=== PATIENT | female | born 1995 | race Caucasian/White ===

== ENCOUNTER 2023-07-29 14:10 | Inpatient (IN) | payer SELFPAY ==
[2023-07-29 14:11] VITALS: BP 131/99; PULSE 89; RESP 16; TEMP 36.7; O2SAT 98; BMI 19.3
[2023-07-29 14:26] LABS: Basophils % 0.5 %; Eosinophils # 0.1 10^3/uL (0.0-0.8); Eosinophils % 1.4 %; Lymphocytes # 1.9 10^3/uL (0.8-4.8); Lymphocytes % 44.2 %; Mean Corpuscular HGB Conc 33.8 g/dL (30-55); Mean Corpuscular Hemoglobin 30.6 pg (27-33); Mean Corpuscular Volume 90.7 fl (85-98); Monocytes # 0.4 10^3/uL (0.2-0.9); Monocytes % 9.7 %; Neutrophils # 1.92 10^3/uL (1.8-7.7); Neutrophils % 44.2 %; Nucleated Red Blood Cells % 0 %; Platelet Count 182 10^3/cmm (157-399); Red Blood Count 4.08 10^6/uL (3.85-5.65); Red Cell Distribution Width 13.4 % (12.1-15.1); White Blood Count 4.34 10^3/uL (3.29-11.43)
[2023-07-29 14:43] LABS: Alanine Aminotransferase 12 U/L (0-33); Albumin Level 4.1 g/dL (3.5-5.2); Alkaline Phosphatase 62 U/L (35-105); Aspartate Amino Transferase 20 U/L (0-32); Blood Urea Nitrogen 10 mg/dL (6-20); Calcium 9.7 mg/dL (8.5-10.5); Carbon Dioxide 26 mmol/L (22-29); Chloride 104 mmol/L (98-107); Globulin 2.8 g/dL (1.3-4.6); Glomerular Filtration Rate 101.1 mL/min (90-130); Glucose 84 mg/dL (65-115); Osmolality Calculated 288 mOsm/kg (285-295); Sodium 140 mmol/L (136-145); Total Bilirubin 0.3 mg/dL (0.15-1.2); Total Protein 6.9 g/dL (6.6-8.7)
[2023-07-29 14:44] LABS: Acetaminophen < 5.0 ug/mL (10-30); Alcohol Level < 10 mg/dL (0-10); Salicylate < 0.3 mg/dL (3-10)
[2023-07-29 14:45] LABS: Anion Gap 13.9 (5-19); Potassium 3.9 mmol/L (3.5-5.1)
[2023-07-29 15:00] LABS: Amphetamines Screen Urine Negative (Negative); Barbiturates Screen Urine Negative (Negative); Benzodiazepines Screen Urine Negative (Negative); Cocaine Screen Urine Negative (Negative); Opiate Screen Urine Negative (Negative); PCP Screen Urine Negative (Negative); THC Screen Urine Positive (Negative)
--- NOTE | 2023-07-29 15:02 | W.ED.PSYCHS ---
HPI - Psych General: Chief Complaint: Psychiatric Symptoms Stated Complaint: Hallucinations Time Seen by Provider: 07/29/23 14:12 Source: patient and EMS Mode of arrival: EMS Limitations: no limitations History of Present Illness: Patient presents here with severe paranoia she states that she believes that the government's been out to get her she states she has any disability that she has to work at times. She states she also believes that she is a sleeper soldier that was sent here to protect some people patient is quite delusional and paranoid no known history of this in the past Associated symptoms: Reports delusions Review of Systems Const: Denies: fever(s) or chills ENMT: Denies: throat pain or dental pain Card: Denies: chest pain Resp: Denies: dyspnea GI: Denies: abdominal pain, nausea, vomiting or diarrhea Musc: Denies: neck pain or back pain Skin/Breast: Denies: rash Neuro: Denies: headache(s) Psych: Reports: paranoia Physical Exam Const: COMMON NORMALS: patient oriented x3 HENMT: COMMON NORMALS: normocephalic and atraumatic HEAD & SCALP: normocephalic and atraumatic Neck/C-Spine: COMMON NORMALS: full ROM and supple Chest: COMMONS NORMALS: normal inspection of the chest Resp: COMMON NORMALS: normal respiratory effort Cardio: COMMON NORMALS: regular rate, regular rhythm and No murmurs present (Cardio) RATE: regular rate RHYTHM: regular rhythm Extremity: COMMON NORMALS: normal to inspection and full ROM Neuro: COMMON NORMALS: patient oriented x3, moves all extremities and no focal motor deficits Psych: COMMON NORMALS: mental status grossly normal, Normal thought process present and cooperative THOUGHT PROCESS: Normal thought process present THOUGHT CONTENT: Yes delusions and Yes Hallucination(s) present Skin: COMMON NORMALS: no rashes or lesions noted and no wounds GENERAL SKIN EXAM: no rashes or lesions noted Course Vital Signs: Vital signs: Vital Signs Temperature 98.0 F 07/29/23 14:11 Pulse Rate 89 07/29/23 14:11 Respiratory Rate 16 07/29/23 14:11 Blood Pressure 131/99 07/29/23 14:11 Pulse Oximetry 98 07/29/23 14:11 Oxygen Delivery Me thod Room Air 07/29/23 14:11 MDM - Psych Medical Decision Making Patient presents here with acute psychosis she is medically cleared placed under 96-hour hold I spoke to psychiatrist will admit at this time. Medical Records I reviewed the patient's medical records. Lab Data I reviewed the patient's lab results. 07/29/23 14:19 07/29/23 14:19 Laboratory Results WBC 4.34 10^3/uL (3.29-11.43) 07/29/23 14:19 RBC 4.08 10^6/uL (3.85-5.65) 07/29/23 14:19 Hgb 12.50 g/dL (11.27-16.99) 07/29/23 14:19 Hct 37.0 % (36-47) 07/29/23 14:19 MCV 90.7 fl (85-98) 07/29/23 14:19 MCH 30.6 pg (27-33) 07/29/23 14:19 MCHC 33.8 g/dL (30-55) 07/29/23 14:19 RDW 13.4 % (12.1-15.1) 07/29/23 14:19 Plt Count 182 10^3/cmm (157-399) 07/29/23 14:19 MPV 11.0 fL (7.4-10.4) H 07/29/23 14:19 Neut % (Auto) 44.2 % 07/29/23 14:19 Lymph % (Auto) 44.2 % 07/29/23 14:19 [place] % (Auto) 9.7 % 07/29/23 14:19 Eos % (Auto) 1.4 % 07/29/23 14:19 Baso % (Auto) 0.5 % 07/29/23 14:19 Neut # (Auto) 1.92 10^3/uL (1.8-7.7) 07/29/23 14:19 Lymph # (Auto) 1.9 10^3/uL (0.8-4.8) 07/29/23 14:19 [place] # (Auto) 0.4 10^3/uL (0.2-0.9) 07/29/23 14:19 Eos # (Auto) 0.1 10^3/uL (0.0-0.8) 07/29/23 14:19 Baso # (Auto) 0.0 10^3/uL (0.0-0.1) 07/29/23 14:19 Nucleated RBC % (auto) 0 % 07/29/23 14:19 Nucleated RBCs # 0.0 /100WBC 07/29/23 14:19 Sodium 140 mmol/L (136-145) 07/29/23 14:19 Potassium 3.9 mmol/L (3.5-5.1) 07/29/23 14:19 Chloride 104 mmol/L (98-107) 07/29/23 14:19 Carbon Dioxide 26 mmol/L (22-29) 07/29/23 14:19 Anion Gap 13.9 (5-19) 07/29/23 14:19 BUN 10 mg/dL (6-20) 07/29/23 14:19 Creatinine 0.7 mg/dL (0.5-0.9) 07/29/23 14:19 GFR Calculation 101.1 mL/min (90-130) 07/29/23 14:19 Glucose 84 mg/dL (65-115) 07/29/23 14:19 Calculated Osmolality 288 mOsm/kg (285-295) 07/29/23 14:19 Calcium 9.7 mg/dL (8.5-10.5) 07/29/23 14:19 Total Bilirubin 0.3 mg/dL (0.15-1.2) 07/29/23 14:19 AST 20 U/L (0-32) 07/29/23 14:19 ALT 12 U/L (0-33) 07/29/23 14:19 Alkaline Phosphatase 62 U/L (35-105) 07/29/23 14:19 Total Protein 6.9 g/dL (6.6-8.7) 07/29/23 14:19 Albumin 4.1 g/dL (3.5-5.2) 07/29/23 14:19 Globulin 2.8 g/dL (1.3-4.6) 07/29/23 14:19 Salicylates < 0.3 mg/dL (3-10) L 07/29/23 14:19 Urine Opiates Screen Negative ng/mL (Negative) 07/29/23 14:33 Acetaminophen < 5.0 ug/mL (10-30) L 07/29/23 14:19 Ur Barbiturates Screen Negative ng/mL (Negative) 07/29/23 14:33 Ur Phencyclidine Scrn Negative ng/mL (Negative) 07/29/23 14:33 Ur Amphetamines Screen Negative ng/mL (Negative) 07/29/23 14:33 U Benzodiazepines Scrn Negative ng/mL (Negative) 07/29/23 14:33 Urine Cocaine Screen Negative ng/mL (Negative) 07/29/23 14:33 U Marijuana (THC) Screen Positive ng/mL (Negative) H 07/29/23 14:33 Ethyl Alcohol < 10 mg/dL (0-10) 07/29/23 14:19 No radiology studies performed this visit Discharge Plan Discharge Patient Disposition: Admitted As Inpatient Clinical Impression: Acute psychosis Condition: Stable Prescriptions: No Action No Known Home Medications Coding Level of Care Code ED Animal Park Code Enforcement Officer for Charlene Molina
[2023-07-29 16:50] LABS: HCG Qualitative Urine. Negative (Negative)
[2023-07-29 17:28] VITALS: BP 125/89; PULSE 81; RESP 18; TEMP 36.6; O2SAT 100
[2023-07-29] MEDS: nicotine 2 mg Gum BUCCAL (18:12)
--- NOTE | 2023-07-29 18:44 | PC.NURSE ---
Pt admitted to [facility] at 1719.Pt was brought in by law enforcement due to making bizarre statements. Upon admission pt states that she is here because her family wanted her to be here but she isn?t too sure. She told police ?I have a cloak of invisibility around my daughter so bad people cant take her.? Pt was positive for marijuana. Pt denies SI/HI. She said she thinks that she hears and sees thing that aren?t there but she knows they aren?t real. During admission assessment pt was asked if she had any medical history she stated i have a kidney infection and if i don't have one someone else definitely does. When asked if pt had an advanced directive she asked what that was, staff told her if she doesn't know what it is then she probably doesn't have one, pt then stated oh then i definitely have one its Don Delvalle. She proceeded to say that about a living will, a guardian and a medical power of claim attorney. pt appears to be a poor historian but is very calm and cooperative during assessment.
[2023-07-29 20:18] VITALS: BP 134/88; PULSE 95; RESP 16; TEMP 36.7; O2SAT 99
[2023-07-29] MEDS: OLANZapine 5 mg ODT PO (20:39)
[2023-07-29] MEDS: trazodone 50 mg Tablet PO (21:27)
[2023-07-30 06:00] VITALS: BP 101/65; PULSE 66; RESP 16; O2SAT 99
[2023-07-30] MEDS: nicotine 4 mg lozenge MUCOUS MEM ×2 (10:13→20:47)
--- NOTE | 2023-07-30 12:45 | P.CONIM_ITS ---
Providers/Reason For Consult 2 Consulting Physician/Specialty*: Internal medicine/dr. rice Reason for Consult*: Possible mastitis Attending Physician: Michel Maldonado MD History of Present Illness History of Present Illness Sugar Mathews is a 28 year old female Without significant past medical history presented to the hospital for paranoia and is currently admitted to the psychiatric unit. She is currently being treated for delusions and paranoia by psychiatry however it was noted that patient has possible mastitis and therefore hospitalist team was consulted. Patient is currently breast-feeding. Her daughter is 1 years old. Patient also states that she apparently potentially has a glass on the bottom of her both feet. She says she fell there was something on the bottom of her feet that she has been trying to take out but she cannot. She states that she is unable to put weight on the foot on a specific spot on her left foot and it is slightly tender. Medications/Allergies Home Medications Medication Instructions Recorded Confirmed Last Taken Type No Known Home Medications 07/29/23 07/29/23 Unknown History Allergies Allergy/AdvReac Type Severity Reaction Status Date / Time amoxicillin Allergy Unknown Verified 07/29/23 14:21 azithromycin [From Zithromax] Allergy Unconscious Verified 07/29/23 14:21 sulfamethoxazole Allergy Unconscious Verified 07/29/23 14:21 [From Bactrim] trimethoprim [From Bactrim] Allergy Unconscious Verified 07/29/23 14:21 Current Medications Generic Name Dose Route Start Last Admin Trade Name Freq PRN Reason Stop Dose Admin Nicotine Polacrilex 2 mg 07/29/23 17:28 07/29/23 18:12 Nicotine 2 Mg Gum BUCCAL 2 mg Q2H PRN Administration NICOTINE WITHDRAWAL Nicotine Polacrilex 4 mg 07/29/23 19:52 07/30/23 10:13 Nicotine 4 Mg Lozenge MUCOUS MEM 4 mg Q2H PRN Administration NICOTINE CRAVINGS Olanzapine 5 mg 07/29/23 17:28 07/29/23 20:39 Olanzapine 5 Mg Odt PO 5 mg Q4H PRN Administration Agitation/Psychosis Trazodone HCl 50 mg 07/29/23 17:28 07/29/23 21:27 Trazodone 50 Mg Tablet PO 50 mg BEDTIME PRN Administration SLEEP Vitals/I&O/Wt Last Vital Signs Temp 98.0 F 07/29/23 20:18 Pulse 66 07/30/23 06:00 Resp 16 07/30/23 06:00 BP 101/65 07/30/23 06:00 Pulse Ox 99 07/30/23 06:00 O2 Del Method Room Air 07/30/23 06:00 Weight last 48 hrs Weight 51.256 kg Physical Exam 2 Narrative: No acute distress Lungs clear to auscultation Abdomen soft Right breast nontender nonswollen no erythema noted. Small nodule noted at superior aspect medial side may be 1 cm in size. Nontender. Seems to be an inflamed duct. This does not appear to be mastitis. Both breasts are very engorged since patient has not breast-fed in last 24 hours. Both breasts are nontender to palpation. Bilateral feet do not have any visible foreign bodies Data 07/29/23 14:19 07/29/23 14:19 A&P Assessment and plan (1) Engorged breasts: Plan #Engorged breasts #Possible foreign body in feet ? I do not believe patient has mastitis at this time. I would recommend getting a breast pump for the patient and letting her pump several times a day to relieve pressure. If after pumping she gets erythema or any signs of mastitis I would pursue with further imaging and potentially start antibiotics however at this time I recommend she pump as much as she can. ? Will consult podiatry to examine feet and recommend further imaging studies. Psych management as per psych Consult Attestations 2 Medical Necessity Statement: Defer to primary team. Diagnoses Engorged breasts N64.59
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
[2023-07-30 14:00] VITALS: BP 99/62; PULSE 65; RESP 16; TEMP 36.4; O2SAT 96
--- NOTE | 2023-07-30 14:02 | XRR_ITS ---
PROCEDURE INFORMATION: Exam: XR Left Foot Exam date and time: 07/30/2023 2:58 PM Age: 28 years old Clinical indication: Injury or trauma; Other: Stepped on glass; Laceration; Foot; Bilateral; Foreign body involvement not specified TECHNIQUE: Imaging protocol: Radiologic exam of the left foot. Views: 3 or more views. COMPARISON: No relevant prior studies available. FINDINGS: Bones/joints: No evidence of acute fracture or subluxation. Tarsometatarsal alignment is maintained. Soft tissues: No gross soft tissue abnormality. XR/XR foot LT min 3V* [id number] IMPRESSION: 1. No evidence of radiopaque foreign body, acute fracture or subluxation. If there is ongoing clinical concern, consider correlation with CT.
--- NOTE | 2023-07-30 14:02 | XRR_ITS ---
PROCEDURE INFORMATION: Exam: XR Right Foot Exam date and time: 07/30/2023 3:01 PM Age: 28 years old Clinical indication: Injury or trauma; Other: Stepped on glass; Laceration; Foot; Bilateral; Foreign body involvement not specified TECHNIQUE: Imaging protocol: Radiologic exam of the right foot. Views: 3 or more views. COMPARISON: No relevant prior studies available. FINDINGS: Bones/joints: No evidence of acute fracture or subluxation. Tarsometatarsal alignment is maintained. Soft tissues: No gross soft tissue abnormality. XR/XR foot RT min 3V* [id number] IMPRESSION: 1. No evidence of radiopaque foreign body, acute fracture or subluxation. If there is ongoing clinical concern, consider correlation with CT.
--- NOTE | 2023-07-30 14:49 | PC.OT ---
OT EVALUATION ATTEMPTED AM AND PM AND PT WAS NOT AWAKE; WILL ATTEMPT AGAIN TOMORROW
--- NOTE | 2023-07-30 15:27 | PC.NURSE ---
This nurse assisted the pt with using breast pump around 1400 today. Pt pumped from both breast and was encouraged to pump as often as pt breast feed at home to help with keeping supply up and not getting engorged or mastitis. Pt stated that she wants to continue when she gets home.
--- NOTE | 2023-07-30 18:26 | P.CONIM_ITS ---
Providers/Reason For Consult 2 Consulting Physician/Specialty*: Dr. Farooq Wright, Rk.P.M./podiatry Reason for Consult*: Foreign body bilateral feet Attending Physician: Michel Maldonado MD History of Present Illness History of Present Illness Sugar Mathews is a 28 year old female with unremarkable past medical history who presented to the emergency department yesterday 07/29/2023 with paranoia. Based on her presentation, she was admitted to the Neuropsych Unit. Patient is currently breast-feeding and was found to have possible mastitis. During her workup she made mention of potential glass in the bottom of both of her feet. Podiatry was consulted to evaluate patient and provide further recommendations for treatment. In discussing with the patient, she states that she feels that there was something in the bottom of her feet over the course the past week. She states that she was going to digs them out herself but just in the past couple of days her feet stopped hurting and she thinks that the glass has worked its way out. She does indicate a spot on the plantar aspect of the left foot that she states is still slightly tender. But much improved to what it was. She states that she is able to walk without any pain. This was witnessed by me as she was walking around with normal gait. Patient denies any constitutional symptoms. Review of Systems 2 General: Reports: 10 or more systems reviewed and unremarkable except in HPI and below Const: Denies: fever(s), chills, body aches or change in appetite Eyes: Denies: change in vision or blurry vision Card: Denies: chest pain, palpitations or irregular heart rhythm Resp: Denies: dyspnea GI: Denies: abdominal pain, nausea, vomiting or diarrhea Skin/Breast: Reports: lesions Medications/Allergies Home Medications Medication Instructions Recorded Confirmed Last Taken Type No Known Home Medications 07/29/23 07/29/23 Unknown History Allergies Allergy/AdvReac Type Severity Reaction Status Date / Time amoxicillin Allergy Unknown Verified 07/29/23 14:21 azithromycin [From Zithromax] Allergy Unconscious Verified 07/29/23 14:21 sulfamethoxazole Allergy Unconscious Verified 07/29/23 14:21 [From Bactrim] trimethoprim [From Bactrim] Allergy Unconscious Verified 07/29/23 14:21 Current Medications Generic Name Dose Route Start Last Admin Trade Name Freq PRN Reason Stop Dose Admin Nicotine Polacrilex 2 mg 07/29/23 17:28 07/29/23 18:12 Nicotine 2 Mg Gum BUCCAL 2 mg Q2H PRN Administration NICOTINE WITHDRAWAL Nicotine Polacrilex 4 mg 07/29/23 19:52 07/30/23 10:13 Nicotine 4 Mg Lozenge MUCOUS MEM 4 mg Q2H PRN Administration NICOTINE CRAVINGS Olanzapine 5 mg 07/29/23 17:28 07/29/23 20:39 Olanzapine 5 Mg Odt PO 5 mg Q4H PRN Administration Agitation/Psychosis Trazodone HCl 50 mg 07/29/23 17:28 07/29/23 21:27 Trazodone 50 Mg Tablet PO 50 mg BEDTIME PRN Administration SLEEP Vitals/I&O/Wt Last Vital Signs Temp 97.6 F 07/30/23 14:00 Pulse 65 07/30/23 14:00 Resp 16 07/30/23 14:00 BP 99/62 07/30/23 14:00 Pulse Ox 96 07/30/23 14:00 O2 Del Method Room Air 07/30/23 06:00 Weight last 48 hrs Weight 113 lb Physical Exam 2 Narrative: BELOW IS A FOCUSED LOWER EXTREMITY EXAM GENERAL: A&O x 3 VASCULAR: DP/PT pulses palpable 2/4 with CFT intact, <3seconds to distal digits DERMATOLOGICAL: Skin turgor and temperature is within normal limits. No interdigital maceration noted. Hyperkeratotic tissue buildup plantar aspect of hallux interphalangeal joint bilaterally. No open wounds or lesions. No pain with palpation of hallux interphalangeal joint fat pad plantarly where patient indicated location of glass could potentially be. Medial longitudinal arch left foot shows small superficial healing wound. Palpation of this did elicit minimal tenderness. No erythema, no proximal streaking. No evidence of deep space abscess. No underlying fluctuance. No other wounds or lesions noted. Feet are soiled likely barefoot walking MUSCULOSKELETAL: As with palpation of aforementioned skin lesion medial longitudinal arch left foot NEUROLOGICAL: Neurological sensation to the affected foot and ankle is present through L4-S1 dermatomes with no hyper/hypoesthesias, negative Tinel or Valleix's sign IMAGING: Three-view x-rays bilateral feet taken today were personally interpreted by me which show no evidence of foreign body. However, if pain persists or infection ensues further imaging in the form of an MRI would be more beneficial. Data 07/29/23 14:19 07/29/23 14:19 A&P Assessment and plan (1) Foreign body in left foot: (2) Acute psychosis: Plan -Possible foreign body bilateral feet -Labs and vitals reviewed -WBC 4.34 -VSS -Diet: Okay for diet -No surgical intervention during admission -Based on clinical evaluation as well as radiographic evaluation, patient does not have readily visible or accessible foreign body of either the right or the left foot. Lesion on plantar aspect of left foot in the medial longitudinal arch area may be indicative of superficial foreign body versus healing wound patient picking at the bottoms of her feet. I discussed with the patient that if there is a superficial foreign body that these typically will work their way out to the surface of the skin. If this happens and a small blister or pustule develops, the patient is not to pop it or pick it themselves. They are to contact the clinic. I also advised the patient on avoiding barefoot walking. I recommended to the patient that she follow-up with me in clinic in the outpatient setting after discharge from the hospital. If she has persistent pain and is still concerned about foreign body this is something that can be evaluated and treated in the office. Based on patient's condition and location I did not feel it appropriate to perform exploratory debridement to the plantar aspect of the left foot. As there is no infection, this can be evaluated in the outpatient setting. -Weight bearing: Weightbearing as tolerated to bilateral feet without restriction -Dressings: No dressings needed -Discharge plan: Patient is okay to discharge home from podiatry standpoint once deemed medically stable by the primary team. Recommend follow-up in the outpatient setting upon discharge for evaluation of bilateral feet. -Podiatry will sign off. Please reconsult if needed. Coding Level of Care Code Acute Code for Chg Fwd Diagnoses Foreign body in left foot S90.852A Acute psychosis F23
--- NOTE | 2023-07-30 20:55 | PC.NURSE ---
IN BED RESTING AROUSES TO VOICE. DENIES PAIN. DENIES SI/HI AND AVH AT THIS TIME. RATES ANXIETY 0/10 AND DEPRESSION 6/10. PT IS NOTED TO HAVE A FLAT AFFECT AND WITHDRAWN TO ROOM. PT WENT TO SPEAK TO DR. COPE IN DAY ROOM. ALL QUESTIONS ANSWERED AND SUPPORT WAS VOICED.
[2023-07-30 22:00] VITALS: BP 127/87; PULSE 103; RESP 16; TEMP 36.9; O2SAT 95
[2023-07-31 06:00] VITALS: BP 106/65; PULSE 64; RESP 16; O2SAT 100
[2023-07-31] MEDS: nicotine 2 mg Gum BUCCAL ×2 (08:22→10:39)
--- NOTE | 2023-07-31 09:04 | PC.NURSE ---
THIS NURSE ASKED PATIENT IF SHE WANTED TO PUMP. PATIENT STATED THAT SHE NEEDED NEED TO AT THE MOMENT. PATIENT ALSO SAID THAT SHE DOESN'T LIKE TO PUMP, BUT THAT SHE WOULD PROBABLY ASK TO PUMP LATER IN THE DAY. THIS NURSE ENCOURAGED PATIENT TO NOTIFY US AND THAT WE WOULD BE HAPPY TO GATHER SUPPLIES. UNDERSTANDING VERBALIZED.
[2023-07-31] MEDS: nicotine 4 mg lozenge MUCOUS MEM ×3 (12:43→19:35)
[2023-07-31 13:47] VITALS: BP 143/86; PULSE 82; RESP 15; TEMP 36.8; O2SAT 100
--- NOTE | 2023-07-31 14:01 | P.PN_ITS ---
Subjective 2 Subjective: Briefly seen today. Patient states that she feels a lot better and breast are not engorged anymore and she has no pain. She felt better after pumping. She has no other complaints at this time. Vitals/I&O/Wt Last Vital Signs Temp 98.2 F 07/31/23 13:47 Pulse 82 07/31/23 13:47 Resp 15 07/31/23 13:47 BP 143/86 07/31/23 13:47 Pulse Ox 100 07/31/23 13:47 O2 Del Method Room Air 07/31/23 06:00 Weight last 48 hrs Weight 51.256 kg Physical Exam 2 Narrative: Not examined. Patient states she feels better. Data 07/29/23 14:19 07/29/23 14:19 A&P Assessment and plan (1) Engorged breasts: Plan Patient states she feels better after pumping. Podiatry also saw patient and recommended follow-up in clinic as an outpatient. Medicine will sign off at this time. Please recall should you have further questions. Attestations 2 Medical Necessity Statement*: Defer to primary team Diagnoses Engorged breasts N64.59
--- NOTE | 2023-07-31 17:13 | P.NPUPN_ITS ---
Subjective NPU 2 Subjective: Patient presented today reporting that she really wants to be home for her daughter's first birthday tomorrow. She reports that she is doing okay and at first was somewhat resistant to medication conversation. She talked about thinking maybe she has ADHD that she needs to be checked for that. We discussed that her symptoms are consistent with thought disorder and we discussed the risks, benefits and alternatives of starting Abilify and she understood and agreed to proceed as is documented in this note. Mental Status Exam 2 MSE Comments: This is an underweight white female in hospital scrubs with adequate grooming and eye contact. No abnormal movements except for mild psychomotor retardation. Cooperative with exam in mild distress. Speech was decreased rate and volume. Mood described as anxious and depressed, affect odd. Thought process mostly organized. Thought content: Patient endorsed anxiety, insomnia, depression, feeling of purposelessness, occasional thoughts of non-existence, occasional thoughts of communication with aliens, occasional thoughts of telepathy, no current thoughts of self-harm or harm to others. She denied active suicidal or homicidal ideation, there were no delusions reported but clear odd and bizarre delusions of reference noted, she denied auditory hallucinations to some degree but another time seem to report things it seems like auditory hallucinations but denied visual hallucinations. Attention and concentration was mostly intact and memory was mostly reliable but none were formally tested. She is alert and oriented times person and place. Insight, judgment and impulse control are impaired. Vitals/I&O/Wt Last Vital Signs Temp 98.4 F 07/31/23 20:45 Pulse 86 07/31/23 20:45 Resp 16 07/31/23 20:45 BP 140/79 07/31/23 20:45 Pulse Ox 99 07/31/23 20:45 O2 Del Method Room Air 07/31/23 20:45 Data NPU 07/29/23 14:19 07/29/23 14:19 A&P Assessment and plan (1) Acute psychosis: (2) Foreign body in left foot: (3) Breast feeding status of mother: (4) Cannabis use disorder: Plan This is a 28-year-old white female who presents with symptoms of anxiety, insomnia, and depression. She also reports unusual beliefs and experiences such as feeling that aliens are communicating with her and that she can hear people's thoughts. She has a history of trying Zoloft for her symptoms but is resistant to medication and prefers a more holistic approach to her mental health. Possible thought disorder noted, further evaluation needed. Agreed to exploring antipsychotic with special attention to breast-feeding concerns. 1. Evaluate for appropriate antipsychotic given breast-feeding considerations. Start Abilify 5 mg p.o. daily 2. Continue every 15 minute checks for safety. 3. Encourage individual, group and milieu therapy. 4. Encourage sober living treatment after discharge at the highest level care to which she is willing to commit. 5. Obtain hospitalist consult for possible mastitis and foreign body in foot. 6. Evaluate for safety for 96-hour hold. Get collateral information from family/significant others. Involuntary Hold Information 2 96 Hour Hold: 96 Hour Involuntary Admission: Yes 96 Hour Hold Ending Date: 08/04/23 96 Hour Hold Ending Time: 14:35 Attestations NPU 2 Medical Necessity Statement*: Inpatient hospitalization is medically necessary and the clinically appropriate intervention at this time. We will monitor/initiate medications and make changes as indicated. Likely length of stay 3-5days. Coding Level of Care Code Acute Code for Chg Fwd Diagnoses Acute psychosis F23 Foreign body in left foot S90.852A Breast feeding status of mother Z39.1 Cannabis use disorder F12.90
[2023-07-31] MEDS: ARIPiprazole 10 mg Tablet 5 MG PO (20:13)
[2023-07-31 20:45] VITALS: BP 140/79; PULSE 86; RESP 16; TEMP 36.9; O2SAT 99
[2023-08-01] MEDS: acetaminophen 325 mg Tablet 650 MG PO (03:57)
[2023-08-01 06:00] VITALS: BP 116/76; PULSE 72; RESP 16; O2SAT 97
[2023-08-01] MEDS: ARIPiprazole 10 mg Tablet 5 MG PO (08:28)
[2023-08-01] MEDS: nicotine 4 mg lozenge MUCOUS MEM ×2 (08:34→09:01)
--- NOTE | 2023-08-01 09:01 | PC.NURSE ---
Patient given nicotine lozenge early due to her accidentally leaving her previous lozenge on her breakfast tray.
[2023-08-01] MEDS: neomycin-poly-bacitracin oint 28 gm 1 APPLIC TOPICAL (09:16)
[2023-08-01] MEDS: nicotine 2 mg Gum BUCCAL ×3 (13:08→21:40)
[2023-08-01] MEDS: calcium carbonate 500 mg Chew Tablet 1000 MG PO (13:38)
[2023-08-01 14:00] VITALS: BP 107/75; PULSE 96; RESP 18; TEMP 36.8; O2SAT 98
--- NOTE | 2023-08-01 15:00 | P.NPUPN_ITS ---
Subjective NPU 2 Subjective: Patient presented today reporting that she is feeling better and does feel the Abilify has helped. She had been concerned that it was going to feel like she was medicated and she reported that she has not felt that way. We discussed that we started on the low-dose and wanted to make sure she was tolerating it and not feeling that way before we increased her medication. We discussed the risks, benefits and alternatives of increasing the dose to 10 mg p.o. daily and she understood and agreed to proceed as is documented in this note. She continues to endorse limited insight into the behaviors and thinking that led to her going on to a neighbor's porch. We discussed the possibility of her daughter being brought down so that she could see her through the window or doing a Zoom call but she opted to wait until she is discharged to see her. Mental Status Exam 2 MSE Comments: This is an underweight white female in hospital scrubs with adequate grooming and eye contact. No abnormal movements except for mild psychomotor retardation. Cooperative with exam in mild distress. Speech was decreased rate and volume. Mood described as anxious and depressed, affect odd. Thought process mostly organized. Thought content: Patient endorsed anxiety, insomnia, depression, feeling of purposelessness, occasional thoughts of non-existence, occasional thoughts of communication with aliens, occasional thoughts of telepathy, no current thoughts of self-harm or harm to others. She denied active suicidal or homicidal ideation, there were no delusions reported but clear odd and bizarre delusions of reference noted, she denied auditory hallucinations to some degree but another time seem to report things it seems like auditory hallucinations but denied visual hallucinations. Attention and concentration was mostly intact and memory was mostly reliable but none were formally tested. She is alert and oriented times person and place. Insight, judgment and impulse control are impaired. Vitals/I&O/Wt Last Vital Signs Temp 98.4 F 07/31/23 20:45 Pulse 72 08/01/23 06:00 Resp 16 08/01/23 06:00 BP 116/76 08/01/23 06:00 Pulse Ox 97 08/01/23 06:00 O2 Del Method Room Air 07/31/23 06:00 Data NPU 07/29/23 14:19 07/29/23 14:19 A&P Assessment and plan (1) Acute psychosis: (2) Foreign body in left foot: (3) Breast feeding status of mother: (4) Cannabis use disorder: Plan This is a 28-year-old white female who presents with symptoms of anxiety, insomnia, and depression. She also reports unusual beliefs and experiences such as feeling that aliens are communicating with her and that she can hear people's thoughts. She has a history of trying Zoloft for her symptoms but is resistant to medication and prefers a more holistic approach to her mental health. Possible thought disorder noted, further evaluation needed. Agreed to exploring antipsychotic with special attention to breast-feeding concerns. 1. Evaluate for appropriate antipsychotic given breast-feeding considerations. Increase Abilify from 5 to 10 mg p.o. daily. 2. Continue every 15 minute checks for safety. 3. Encourage individual, group and milieu therapy. 4. Encourage sober living treatment after discharge at the highest level care to which she is willing to commit. 5. Obtain hospitalist consult for possible mastitis and foreign body in foot. 6. Evaluate for safety for 96-hour hold. Get collateral information from family/significant others. Filed for 21-day hold. Involuntary Hold Information 2 96 Hour Hold: 96 Hour Involuntary Admission: Yes 96 Hour Hold Ending Date: 08/04/23 96 Hour Hold Ending Time: 14:35 Attestations NPU 2 Medical Necessity Statement*: Inpatient hospitalization is medically necessary and the clinically appropriate intervention at this time. We will monitor/initiate medications and make changes as indicated. Likely length of stay 3-5days. Coding Level of Care Code Acute Code for Chg Fwd Diagnoses Acute psychosis F23 Foreign body in left foot S90.852A Breast feeding status of mother Z39.1 Cannabis use disorder F12.90
[2023-08-01 20:44] VITALS: BP 145/95; PULSE 92; RESP 18; TEMP 36.9; O2SAT 99
[2023-08-02 06:00] VITALS: BP 118/85; PULSE 97; RESP 18; TEMP 36.6; O2SAT 97
[2023-08-02] MEDS: nicotine 2 mg Gum BUCCAL ×4 (08:36→18:23)
[2023-08-02] MEDS: ARIPiprazole 10 mg Tablet PO (08:36)
--- NOTE | 2023-08-02 09:09 | P.NPUPN_ITS ---
Subjective NPU 2 Subjective: Patient presented today reporting that she is doing okay. We discussed the fact that I spoke with her father and him reporting bizarre and delusional talk when she visited him around the holidays up until June 30 of this year. We discussed having submitted a 21-day hold request and the way that process goes. We reviewed the concerns we have about her safety and we both agreed that her thought process is improving and some very subtle ways. She reported that she is tolerating the increase in the Abilify and denies any side effects of the medication. Mental Status Exam 2 MSE Comments: This is an underweight white female in hospital scrubs with adequate grooming and eye contact. No abnormal movements except for mild psychomotor retardation. Cooperative with exam in mild distress. Speech was decreased rate and volume. Mood described as a little better, affect less odd. Thought process mostly organized. Thought content: Patient endorsed anxiety, insomnia, depression, feeling of purposelessness, occasional thoughts of non-existence, occasional thoughts of communication with aliens, occasional thoughts of telepathy, no current thoughts of self-harm or harm to others. She denied active suicidal or homicidal ideation, there were no delusions reported but clear odd and bizarre delusions of reference noted, she denied auditory hallucinations to some degree but another time seem to report things it seems like auditory hallucinations but denied visual hallucinations. Attention and concentration was mostly intact and memory was mostly reliable but none were formally tested. She is alert and oriented times person and place. Insight, judgment and impulse control are improving. Vitals/I&O/Wt Last Vital Signs Temp 97.8 F 08/02/23 06:00 Pulse 97 08/02/23 06:00 Resp 18 08/02/23 06:00 BP 118/85 08/02/23 06:00 Pulse Ox 97 08/02/23 06:00 O2 Del Method Room Air 08/02/23 06:00 Data NPU 07/29/23 14:19 07/29/23 14:19 A&P Assessment and plan (1) Acute psychosis: (2) Foreign body in left foot: (3) Breast feeding status of mother: (4) Cannabis use disorder: Plan This is a 28-year-old white female who presents with symptoms of anxiety, insomnia, and depression. She also reports unusual beliefs and experiences such as feeling that aliens are communicating with her and that she can hear people's thoughts. She has a history of trying Zoloft for her symptoms but is resistant to medication and prefers a more holistic approach to her mental health. Possible thought disorder noted, further evaluation needed. Agreed to exploring antipsychotic with special attention to breast-feeding concerns. 1. Evaluate for appropriate antipsychotic given breast-feeding considerations. Increased Abilify from 5 to 10 mg p.o. daily. 2. Continue every 15 minute checks for safety. 3. Encourage individual, group and milieu therapy. 4. Encourage sober living treatment after discharge at the highest level care to which she is willing to commit. 5. Obtain hospitalist consult for possible mastitis and foreign body in foot. 6. Evaluate for safety for 96-hour hold. Get collateral information from family/significant others. Filed for 21-day hold. Involuntary Hold Information 2 96 Hour Hold: 96 Hour Involuntary Admission: Yes 96 Hour Hold Ending Date: 08/04/23 96 Hour Hold Ending Time: 14:35 Attestations NPU 2 Medical Necessity Statement*: Inpatient hospitalization is medically necessary and the clinically appropriate intervention at this time. We will monitor/initiate medications and make changes as indicated. Likely length of stay 3-5days. Coding Level of Care Code Acute Code for Chg Fwd Diagnoses Acute psychosis F23 Foreign body in left foot S90.852A Breast feeding status of mother Z39.1 Cannabis use disorder F12.90
[2023-08-02 14:00] VITALS: BP 110/74; PULSE 75; RESP 16; TEMP 37.1; O2SAT 98
[2023-08-02] MEDS: hyDROXYzine 25 mg Capsule 50 MG PO (19:47)
[2023-08-02 20:21] VITALS: BP 128/88; PULSE 88; RESP 18; TEMP 36.8; O2SAT 98
[2023-08-03 06:00] VITALS: BP 132/87; PULSE 106; RESP 18; TEMP 36.6; O2SAT 98; BMI 19.1
[2023-08-03] MEDS: nicotine 2 mg Gum BUCCAL ×6 (06:14→20:43)
[2023-08-03] MEDS: ARIPiprazole 10 mg Tablet PO (07:56)
--- NOTE | 2023-08-03 08:20 | PC.NURSE ---
in dayroom with others. no distress visualized or voiced. Patient denied all to this nurse. Patient stated that she is okay with her milk drying up when asked if she wanted to pump.
--- NOTE | 2023-08-03 09:21 | P.NPUPN_ITS ---
Subjective NPU 2 Subjective: Patient presented today reporting that she was feeling better. She reports that she does understand that she has had some significant challenges and that her thoughts were not right. We discussed that we filed the 21-day hold and she reported that she trust the treatment team and understands that she should work with us to stay as long as is appropriate. She is clear that she would like to go home and see her baby but she also identifies that she was not doing well and needs to be in the best condition long-term. She denied any side effects to the medication. Mental Status Exam 2 MSE Comments: This is an underweight white female in hospital scrubs with adequate grooming and eye contact. No abnormal movements except for mild psychomotor retardation. Cooperative with exam in mild distress. Speech was decreased rate and volume. Mood described as a little better, affect less odd. Thought process mostly organized. Thought content: Patient endorsed anxiety, insomnia, depression, feeling of purposelessness, occasional thoughts of non-existence, occasional thoughts of communication with aliens, occasional thoughts of telepathy, no current thoughts of self-harm or harm to others. She denied active suicidal or homicidal ideation, there were no delusions reported but less odd and bizarre delusions of reference noted, she denied auditory hallucinations to some degree but another time seem to report things it seems like auditory hallucinations but denied visual hallucinations. Attention and concentration was mostly intact and memory was mostly reliable but none were formally tested. She is alert and oriented x 3. Insight, judgment and impulse control are improving. Vitals/I&O/Wt Last Vital Signs Temp 97.8 F 08/03/23 06:00 Pulse 106 H 08/03/23 06:00 Resp 18 08/03/23 06:00 BP 132/87 08/03/23 06:00 Pulse Ox 98 08/03/23 06:00 O2 Del Method Room Air 08/03/23 06:00 Weight last 48 hrs Weight 50.53 kg Data NPU 07/29/23 14:19 07/29/23 14:19 A&P Assessment and plan (1) Acute psychosis: (2) Foreign body in left foot: (3) Breast feeding status of mother: (4) Cannabis use disorder: Plan This is a 28-year-old white female who presents with symptoms of anxiety, insomnia, and depression. She also reports unusual beliefs and experiences such as feeling that aliens are communicating with her and that she can hear people's thoughts. She has a history of trying Zoloft for her symptoms but is resistant to medication and prefers a more holistic approach to her mental health. Possible thought disorder noted, further evaluation needed. Agreed to exploring antipsychotic with special attention to breast-feeding concerns. 1. Evaluate for appropriate antipsychotic given breast-feeding considerations. Increased Abilify from 5 to 10 mg p.o. daily. 2. Continue every 15 minute checks for safety. 3. Encourage individual, group and milieu therapy. 4. Encourage sober living treatment after discharge at the highest level care to which she is willing to commit. 5. Obtain hospitalist consult for possible mastitis and foreign body in foot. 6. Evaluate for safety for 96-hour hold. Get collateral information from family/significant others. Filed for 21-day hold. Involuntary Hold Information 2 96 Hour Hold: 96 Hour Involuntary Admission: Yes 96 Hour Hold Ending Date: 08/04/23 96 Hour Hold Ending Time: 14:35 Attestations NPU 2 Medical Necessity Statement*: Inpatient hospitalization is medically necessary and the clinically appropriate intervention at this time. We will monitor/initiate medications and make changes as indicated. Likely length of stay 2-4 days. Coding Level of Care Code Acute Code for Chg Fwd Diagnoses Acute psychosis F23 Foreign body in left foot S90.852A Breast feeding status of mother Z39.1 Cannabis use disorder F12.90
[2023-08-03] MEDS: calcium carbonate 500 mg Chew Tablet 1000 MG PO (12:44)
[2023-08-03 14:00] VITALS: BP 127/92; PULSE 89; RESP 16; TEMP 37.1; O2SAT 98
[2023-08-03] MEDS: nicotine 4 mg lozenge MUCOUS MEM (15:37)
[2023-08-03 19:59] VITALS: BP 142/92; PULSE 107; RESP 18; TEMP 36.9; O2SAT 95
[2023-08-03] MEDS: hyDROXYzine 25 mg Capsule 50 MG PO (20:39)
[2023-08-04 06:00] VITALS: BP 132/81; PULSE 116; RESP 16; TEMP 36.5; O2SAT 100
[2023-08-04] MEDS: nicotine 4 mg lozenge MUCOUS MEM (06:20)
[2023-08-04] MEDS: hyDROXYzine 25 mg Capsule 50 MG PO ×2 (07:55→16:39)
[2023-08-04] MEDS: ARIPiprazole 10 mg Tablet PO (07:55)
[2023-08-04] MEDS: nicotine 2 mg Gum BUCCAL ×6 (08:23→22:06)
[2023-08-04] MEDS: calcium carbonate 500 mg Chew Tablet 1000 MG PO (08:50)
--- NOTE | 2023-08-04 08:54 | P.NPUPN_ITS ---
Subjective NPU 2 Subjective: Patient presented today reporting that she is feeling slow and steady improvement. She reports that she is accepting of the 21-day hold process but we discussed the fact that possibly we could set a discharge date for 08/07/2023 or sooner and avoid the hearing so that we can just observe her for a few more days. She reported excepting that that lobby for discharge today. We discussed that we would need it sometime tomorrow before her hearing at 3 PM and discussed how to proceed. She denied any side effects of the medication. Mental Status Exam 2 MSE Comments: This is an underweight white female in hospital scrubs with adequate grooming and eye contact. No abnormal movements except for mild psychomotor retardation. Cooperative with exam in mild distress. Speech was decreased rate and volume. Mood described as a little better, affect less odd. Thought process mostly organized. Thought content: Patient endorsed anxiety, insomnia, depression, feeling of purposelessness, occasional thoughts of non-existence, occasional thoughts of communication with aliens, occasional thoughts of telepathy, no current thoughts of self-harm or harm to others. She denied active suicidal or homicidal ideation, there were no delusions reported but less odd and bizarre delusions of reference noted, she denied auditory hallucinations to some degree but another time seem to report things it seems like auditory hallucinations but denied visual hallucinations. Attention and concentration was mostly intact and memory was mostly reliable but none were formally tested. She is alert and oriented x 3. Insight, judgment and impulse control are improving. Vitals/I&O/Wt Last Vital Signs Temp 97.7 F 08/04/23 06:00 Pulse 116 H 08/04/23 06:00 Resp 16 08/04/23 06:00 BP 132/81 08/04/23 06:00 Pulse Ox 100 08/04/23 06:00 O2 Del Method Room Air 08/04/23 06:00 Weight last 48 hrs Weight 50.53 kg Data NPU 07/29/23 14:19 07/29/23 14:19 A&P Assessment and plan (1) Acute psychosis: (2) Foreign body in left foot: (3) Breast feeding status of mother: (4) Cannabis use disorder: Plan This is a 28-year-old white female who presents with symptoms of anxiety, insomnia, and depression. She also reports unusual beliefs and experiences such as feeling that aliens are communicating with her and that she can hear people's thoughts. She has a history of trying Zoloft for her symptoms but is resistant to medication and prefers a more holistic approach to her mental health. Possible thought disorder noted, further evaluation needed. Agreed to exploring antipsychotic with special attention to breast-feeding concerns. 1. Evaluate for appropriate antipsychotic given breast-feeding considerations. Increased Abilify from 5 to 10 mg p.o. daily. 2. Continue every 15 minute checks for safety. 3. Encourage individual, group and milieu therapy. 4. Encourage sober living treatment after discharge at the highest level care to which she is willing to commit. 5. Obtain hospitalist consult for possible mastitis and foreign body in foot. 6. Evaluate for safety for 96-hour hold. Get collateral information from family/significant others. Filed for 21-day hold. 21-day hold hearing tomorrow. Will possibly collaborate with her on a discharge date if she signs then and avoid the hearing. Involuntary Hold Information 2 96 Hour Hold: 96 Hour Involuntary Admission: Yes 96 Hour Hold Ending Date: 08/04/23 96 Hour Hold Ending Time: 14:35 Attestations NPU 2 Medical Necessity Statement*: Inpatient hospitalization is medically necessary and the clinically appropriate intervention at this time. We will monitor/initiate medications and make changes as indicated. Likely length of stay 1-3 days. Coding Level of Care Code Acute Code for Chg Fwd Diagnoses Acute psychosis F23 Foreign body in left foot S90.852A Breast feeding status of mother Z39.1 Cannabis use disorder F12.90
--- NOTE | 2023-08-04 11:57 | PC.NURSE ---
Patient reports anxiety. When questioned about any potential causes of anxiety, patient became agitated, stating Why are you asking me this, you have never asked me this before. This nurse informed patient that this is part of assessment. Patient stated I don't want to talk about it, just get me something. This nurse administered Zyprexa 5mg ODT to patient. Patient less agitated upon administration of medication.
[2023-08-04 13:30] VITALS: BP 153/91; PULSE 108; RESP 13; TEMP 36.4; O2SAT 98
--- NOTE | 2023-08-04 16:40 | PC.NURSE ---
tHIS NURSE ADMINISTERED VISTARIL 50MG PO TO PATIENT FOR ANXIETY. PATIENT RATES ANXIETY 4/10.
[2023-08-04] MEDS: trazodone 50 mg Tablet PO (20:14)
[2023-08-04 20:52] VITALS: BP 105/72; PULSE 103; RESP 16; TEMP 36.4; O2SAT 96
[2023-08-05 06:00] VITALS: BP 131/83; PULSE 78; RESP 18; TEMP 36.4; O2SAT 100
[2023-08-05] MEDS: ARIPiprazole 10 mg Tablet PO (07:57)
[2023-08-05] MEDS: nicotine 2 mg Gum BUCCAL ×4 (07:57→17:59)
[2023-08-05] MEDS: hyDROXYzine 25 mg Capsule 50 MG PO ×2 (08:13→20:24)
--- NOTE | 2023-08-05 12:33 | P.NPUPN_ITS ---
Subjective NPU 2 Subjective: Patient presented today reporting that she is feeling all right. Tried to discuss the possibility of her agreeing to stay for a specific. But her insight in relation to the seriousness of her condition continues to be limited and she was more focused on other issues towards getting home. We tried to help her identify that she had only been on the medication for 5 days and that she has a history of stopping her medication without consult with her doctor. We discussed our concerns about her not adherence leading her right back to this state of psychosis and she was unable to process that. She denied any side effects to the medication and we agreed that we would be having the 21-day hold hearing later at 3 PM and that she was going to attend Mental Status Exam 2 MSE Comments: This is an underweight white female in hospital scrubs with adequate grooming and eye contact. No abnormal movements except for mild psychomotor retardation. Cooperative with exam in mild distress. Speech was decreased rate and volume. Mood described as a little better, affect less odd. Thought process mostly organized. Thought content: Patient endorsed anxiety, insomnia, depression, feeling of purposelessness, occasional thoughts of non-existence, occasional thoughts of communication with aliens, occasional thoughts of telepathy, no current thoughts of self-harm or harm to others. She denied active suicidal or homicidal ideation, there were no delusions reported but less odd and bizarre delusions of reference noted, she denied auditory hallucinations to some degree but another time seem to report things it seems like auditory hallucinations but denied visual hallucinations. Attention and concentration was mostly intact and memory was mostly reliable but none were formally tested. She is alert and oriented x 3. Insight, judgment and impulse control are improving. Vitals/I&O/Wt Last Vital Signs Temp 97.5 F L 08/05/23 06:00 Pulse 78 08/05/23 06:00 Resp 18 08/05/23 06:00 BP 131/83 08/05/23 06:00 Pulse Ox 100 08/05/23 06:00 O2 Del Method Room Air 08/05/23 06:00 Data NPU 07/29/23 14:19 07/29/23 14:19 A&P Assessment and plan (1) Acute psychosis: (2) Foreign body in left foot: (3) Breast feeding status of mother: (4) Cannabis use disorder: Plan This is a 28-year-old white female who presents with symptoms of anxiety, insomnia, and depression. She also reports unusual beliefs and experiences such as feeling that aliens are communicating with her and that she can hear people's thoughts. She has a history of trying Zoloft for her symptoms but is resistant to medication and prefers a more holistic approach to her mental health. Possible thought disorder noted, further evaluation needed. Agreed to exploring antipsychotic with special attention to breast-feeding concerns. 1. Evaluate for appropriate antipsychotic given breast-feeding considerations. Increased Abilify from 5 to 10 mg p.o. daily. Will consider increasing to 15 mg and discussing long-acting injectable. 2. Continue every 15 minute checks for safety. 3. Encourage individual, group and milieu therapy. 4. Encourage sober living treatment after discharge at the highest level care to which she is willing to commit. 5. Obtain hospitalist consult for possible mastitis and foreign body in foot. 6. Evaluate for safety for 96-hour hold. Get collateral information from family/significant others. Filed for 21-day hold. 21-day hold hearing today at 3 PM. Involuntary Hold Information 2 96 Hour Hold: 96 Hour Involuntary Admission: Yes 96 Hour Hold Ending Date: 08/04/23 96 Hour Hold Ending Time: 14:35 Attestations NPU 2 Medical Necessity Statement*: Inpatient hospitalization is medically necessary and the clinically appropriate intervention at this time. We will monitor/initiate medications and make changes as indicated. Likely length of stay 1-3 days. But could be longer with 21-day hold. Coding Level of Care Code Acute Code for Chg Fwd Diagnoses Acute psychosis F23 Foreign body in left foot S90.852A Breast feeding status of mother Z39.1 Cannabis use disorder F12.90
[2023-08-05 14:00] VITALS: BP 140/96; PULSE 80; RESP 16; TEMP 36.8; O2SAT 96
[2023-08-05] MEDS: trazodone 50 mg Tablet PO (20:24)
[2023-08-05 20:39] VITALS: BP 129/87; PULSE 91; RESP 18; TEMP 36.7; O2SAT 94
[2023-08-05] MEDS: nicotine 4 mg lozenge MUCOUS MEM (20:51)
[2023-08-06] MEDS: acetaminophen 325 mg Tablet 650 MG PO (05:36)
[2023-08-06 05:43] VITALS: BP 127/87; PULSE 89; RESP 16; TEMP 36.4; O2SAT 95
[2023-08-06] MEDS: nicotine 2 mg Gum BUCCAL ×6 (06:25→19:31)
--- NOTE | 2023-08-06 08:19 | P.NPUPN_ITS ---
Subjective NPU 2 Subjective: Patient presented today reporting that she is feeling okay. She reported that her family and significant other would really like her home and that she feels she will only truly get better while at home. She continued to seem to struggle with insight into the significance of her condition. She was tearful at the prospect of not being discharged today. She had a significant outburst later as she was demanding that her significant other just come pick her up seeming to not understand the 21-day hold that she is on. She denied any side effects to the medication. We discussed the long-acting injection/Abilify Maintena versus Abilify Asimtufii and she was not interested in the injection at this time. Mental Status Exam 2 MSE Comments: This is an underweight white female in hospital scrubs with adequate grooming and eye contact. No abnormal movements except for mild psychomotor retardation. Cooperative with exam in mild distress. Speech was decreased rate and volume. Mood described as a little better, affect congruent and tearful. Thought process mostly organized. Thought content: Patient endorsed anxiety, insomnia, depression, no current thoughts of self-harm or harm to others. She denied active suicidal or homicidal ideation, there were no delusions reported but less odd and bizarre delusions of reference noted, she denied auditory hallucinations to some degree but another time seem to report things it seems like auditory hallucinations but denied visual hallucinations. Attention and concentration was mostly intact and memory was mostly reliable but none were formally tested. She is alert and oriented x 3. Insight, judgment and impulse control are improving. Vitals/I&O/Wt Last Vital Signs Temp 97.5 F L 08/06/23 05:43 Pulse 89 08/06/23 05:43 Resp 16 08/06/23 05:43 BP 127/87 08/06/23 05:43 Pulse Ox 95 08/06/23 05:43 O2 Del Method Room Air 08/05/23 14:00 Data NPU 07/29/23 14:19 07/29/23 14:19 A&P Assessment and plan (1) Acute psychosis: (2) Foreign body in left foot: (3) Breast feeding status of mother: (4) Cannabis use disorder: Plan This is a 28-year-old white female who presents with symptoms of anxiety, insomnia, and depression. She also reports unusual beliefs and experiences such as feeling that aliens are communicating with her and that she can hear people's thoughts. She has a history of trying Zoloft for her symptoms but is resistant to medication and prefers a more holistic approach to her mental health. Possible thought disorder noted, further evaluation needed. Agreed to exploring antipsychotic with special attention to breast-feeding concerns. 1. Evaluate for appropriate antipsychotic given breast-feeding considerations. Increased Abilify from 5 to 10 mg p.o. daily. Will consider increasing to 15 mg and discussing long-acting injectable. 2. Continue every 15 minute checks for safety. 3. Encourage individual, group and milieu therapy. 4. Encourage sober living treatment after discharge at the highest level care to which she is willing to commit. 5. Obtain hospitalist consult for possible mastitis and foreign body in foot. 6. Evaluate for safety for 96-hour hold. Get collateral information from family/significant others. Filed for 21-day hold. 21-day hold hearing today at 3 PM. Involuntary Hold Information 2 96 Hour Hold: 96 Hour Involuntary Admission: Yes 96 Hour Hold Ending Date: 08/04/23 96 Hour Hold Ending Time: 14:35 Attestations NPU 2 Medical Necessity Statement*: Inpatient hospitalization is medically necessary and the clinically appropriate intervention at this time. We will monitor/initiate medications and make changes as indicated. Likely length of stay 1-3 days. But could be longer with 21-day hold. Coding Level of Care Code Acute Code for Chg Fwd Diagnoses Acute psychosis F23 Foreign body in left foot S90.852A Breast feeding status of mother Z39.1 Cannabis use disorder F12.90
[2023-08-06] MEDS: ARIPiprazole 10 mg Tablet PO (08:45)
[2023-08-06] MEDS: hyDROXYzine 25 mg Capsule 50 MG PO ×2 (09:59→20:24)
[2023-08-06 14:00] VITALS: BP 133/87; PULSE 84; RESP 14; TEMP 36.6; O2SAT 100
[2023-08-06] MEDS: OLANZapine 5 mg ODT PO (15:00)
[2023-08-06] MEDS: trazodone 50 mg Tablet PO (20:24)
[2023-08-06 21:12] VITALS: BP 144/82; PULSE 92; RESP 18; TEMP 36.3; O2SAT 98
[2023-08-07 06:00] VITALS: BP 134/91; PULSE 97; RESP 18; TEMP 36.6; O2SAT 97
[2023-08-07] MEDS: nicotine 2 mg Gum BUCCAL ×6 (06:04→22:46)
[2023-08-07] MEDS: ARIPiprazole 10 mg Tablet PO (07:54)
[2023-08-07] MEDS: hyDROXYzine 25 mg Capsule 50 MG PO ×3 (07:54→20:03)
--- NOTE | 2023-08-07 08:49 | P.NPUPN_ITS ---
Subjective NPU 2 Subjective: Patient presents today continuing to be fairly amenable to her hospitalization except in the evening she generally loses her composure about not being discharged. She continues to have fairly poor insight and judgment talking about taking some patient's home with her and having limited appreciation of her condition. She did discuss reconsidering the suggestion for the long-acting injectable and reports that she will take that tomorrow. We discussed the risks, benefits and alternatives of starting Abilify Maintena 400 mg IM and she understood and agreed to proceed as is documented in this note. Mental Status Exam 2 MSE Comments: This is an underweight white female in hospital scrubs with adequate grooming and eye contact. No abnormal movements except for mild psychomotor retardation. Cooperative with exam in mild distress. Speech was decreased rate and volume. Mood described as a little better, affect congruent and tearful. Thought process mostly organized. Thought content: Patient endorsed anxiety, insomnia, depression, no current thoughts of self-harm or harm to others. She denied active suicidal or homicidal ideation, there were no delusions reported but less odd and bizarre delusions of reference noted, she denied auditory hallucinations to some degree but another time seem to report things it seems like auditory hallucinations but denied visual hallucinations. Attention and concentration was mostly intact and memory was mostly reliable but none were formally tested. She is alert and oriented x 3. Insight, judgment and impulse control are improving. Vitals/I&O/Wt Last Vital Signs Temp 97.8 F 08/07/23 06:00 Pulse 97 08/07/23 06:00 Resp 18 08/07/23 06:00 BP 134/91 08/07/23 06:00 Pulse Ox 97 08/07/23 06:00 O2 Del Method Room Air 08/07/23 06:00 Data NPU 07/29/23 14:19 07/29/23 14:19 A&P Assessment and plan (1) Acute psychosis: (2) Foreign body in left foot: (3) Breast feeding status of mother: (4) Cannabis use disorder: Plan This is a 28-year-old white female who presents with symptoms of anxiety, insomnia, and depression. She also reports unusual beliefs and experiences such as feeling that aliens are communicating with her and that she can hear people's thoughts. She has a history of trying Zoloft for her symptoms but is resistant to medication and prefers a more holistic approach to her mental health. Possible thought disorder noted, further evaluation needed. Agreed to exploring antipsychotic with special attention to breast-feeding concerns. 1. Evaluate for appropriate antipsychotic given breast-feeding considerations. Increased Abilify from 5 to 10 mg p.o. daily. Will consider increasing to 15 mg and discussing long-acting injectable. Plan for long-acting injectable tomorrow. Abilify Maintena. 2. Continue every 15 minute checks for safety. 3. Encourage individual, group and milieu therapy. 4. Encourage sober living treatment after discharge at the highest level care to which she is willing to commit. 5. Obtain hospitalist consult for possible mastitis and foreign body in foot. 6. Evaluate for safety for 96-hour hold. Get collateral information from family/significant others. Filed for 21-day hold. 21-day hold hearing today at 3 PM. 7. Patient continues to struggle with signs of limited judgment. Will likely order a Jose for insight. Agreeing to the long-acting injectable could allow for an earlier discharge. We will talk to family. Involuntary Hold Information 2 96 Hour Hold: 96 Hour Involuntary Admission: Yes 96 Hour Hold Ending Date: 08/04/23 96 Hour Hold Ending Time: 14:35 Attestations NPU 2 Medical Necessity Statement*: Inpatient hospitalization is medically necessary and the clinically appropriate intervention at this time. We will monitor/initiate medications and make changes as indicated. Likely length of stay 1-3 days. But could be longer with 21-day hold. Coding Level of Care Code Acute Code for Chg Fwd Diagnoses Acute psychosis F23 Foreign body in left foot S90.852A Breast feeding status of mother Z39.1 Cannabis use disorder F12.90
[2023-08-07] MEDS: ARIPiprazole 10 mg Tablet 5 MG PO (11:06)
[2023-08-07] MEDS: nicotine 4 mg lozenge MUCOUS MEM (11:08)
[2023-08-07 14:00] VITALS: BP 146/94; PULSE 114; RESP 18; TEMP 36.9; O2SAT 95
[2023-08-07 21:32] VITALS: BP 143/96; PULSE 83; RESP 20; TEMP 36.2; O2SAT 94
--- NOTE | 2023-08-07 21:50 | PC.NURSE ---
Patient was observed in the day room with her blanket wrapped around her entire body and resting her head on the table. This tech could hear the patient crying. This tech approached patient to try and see if she would like to talk about what was going on. Patient stated that she just wants to go home. Patient stated that she was told for the last 4 days that she would be going home the following day. Patient expresses missing her fiance and baby and just wants to go home to them. Patient verbalized wanting a cigarette, bra, and underwear. Patient also verbalized wanting actual meat and vegetables to eat as the hospital food is really bad. Patient stated that her fiance had today off and would be more than happy to come and get her tonight. Patient stated that he would not be able to come and get her tomorrow due to work and the Doctor told her that we can arrange transportation home and patient stated that her fiance is the only person that she will get into the vehicle with due to her being a petite women and only being able to defend herself so much. This tech let patient know that she could not help with the cigarette but that we did have mesh panties. Patient agreed and stated that she was cold and tired. Patient returned to her room. This tech provided patient with mesh panties and a long sleeve shirt to go under her scrubs. Patient then verbalized that she needed to call work and speak with Samuel her boss. Patient originally requested the number and then asked if this tech would call her work ([employer]) and leave a message for her boss Samuel to give her a call. Let patient know that I would call and leave a message for her boss to give her a call. Per patients request Samuel was added to her authorization to discuss. This tech called patients work as promised and spoke with Samuel. Samuel stated that patient was a former employee and that he had no idea why she would be wanting him to call. This tech let Samuel know that this was the patients request. Samuel thanked me for the call and stated that he will need to process this and figure out what he will do.
[2023-08-07] MEDS: trazodone 50 mg Tablet PO (21:55)
[2023-08-08] MEDS: nicotine 2 mg Gum BUCCAL ×5 (05:32→20:18)
[2023-08-08] MEDS: hyDROXYzine 25 mg Capsule 50 MG PO ×3 (05:32→21:05)
[2023-08-08 06:00] VITALS: BP 125/75; PULSE 103; RESP 18; TEMP 36.6; O2SAT 98
[2023-08-08] MEDS: ARIPiprazole 30 mg Tablet 15 MG PO (08:17)
--- NOTE | 2023-08-08 08:39 | P.NPUPN_ITS ---
Subjective NPU 2 Subjective: Patient presents today continuing to be fairly amenable to her hospitalization except in the evening she generally loses her composure about not being discharged. She continues to have fairly poor insight and judgment. Performance on Jose was very poor. She did take the Abilify Maintena 400 mg IM and denied any side effects. Very delusional with significant theories of conspiracy. Mental Status Exam 2 MSE Comments: This is an underweight white female in hospital scrubs with adequate grooming and eye contact. No abnormal movements except for mild psychomotor retardation. Cooperative with exam in mild to moderate distress. Speech was decreased rate and volume. Mood described as a little better, affect congruent and tearful. Thought process mostly organized. Thought content: Patient endorsed anxiety, insomnia, depression, no current thoughts of self-harm or harm to others. She denied active suicidal or homicidal ideation, there were no delusions reported but significant odd and bizarre delusions of reference noted, paranoia, persecutory delusions noted, she denied auditory hallucinations to some degree but another time seem to report things it seems like auditory hallucinations but denied visual hallucinations. Attention and concentration was mostly intact and memory was mostly reliable but none were formally tested. She is alert and oriented x 3. Insight, judgment and impulse control are limited. Vitals/I&O/Wt Last Vital Signs Temp 97.9 F 08/08/23 06:00 Pulse 103 H 08/08/23 06:00 Resp 18 08/08/23 06:00 BP 125/75 08/08/23 06:00 Pulse Ox 98 08/08/23 06:00 O2 Del Method Room Air 08/08/23 06:00 Data NPU 07/29/23 14:19 07/29/23 14:19 A&P Assessment and plan (1) Acute psychosis: (2) Foreign body in left foot: (3) Breast feeding status of mother: (4) Cannabis use disorder: Plan This is a 28-year-old white female who presents with symptoms of anxiety, insomnia, and depression. She also reports unusual beliefs and experiences such as feeling that aliens are communicating with her and that she can hear people's thoughts. She has a history of trying Zoloft for her symptoms but is resistant to medication and prefers a more holistic approach to her mental health. Possible thought disorder noted, further evaluation needed. Agreed to exploring antipsychotic with special attention to breast-feeding concerns. 1. Evaluate for appropriate antipsychotic given breast-feeding considerations. Increased Abilify from 5 to 10 mg p.o. daily. Will consider increasing to 15 mg and discussing long-acting injectable. Plan for long-acting injectable tomorrow. Abilify Maintena. 2. Continue every 15 minute checks for safety. 3. Encourage individual, group and milieu therapy. 4. Encourage sober living treatment after discharge at the highest level care to which she is willing to commit. 5. Obtain hospitalist consult for possible mastitis and foreign body in foot. 6. Evaluate for safety for 96-hour hold. Get collateral information from family/significant others. Filed for 21-day hold. 21-day hold hearing today at 3 PM. 7. Patient continues to struggle with signs of limited judgment. Will likely order a Jose for insight. Agreeing to the long-acting injectable could allow for an earlier discharge. Jose significant disability and need for assistance noted Involuntary Hold Information 2 96 Hour Hold: 96 Hour Involuntary Admission: Yes 96 Hour Hold Ending Date: 08/04/23 96 Hour Hold Ending Time: 14:35 Attestations NPU 2 Medical Necessity Statement*: Inpatient hospitalization is medically necessary and the clinically appropriate intervention at this time. We will monitor/initiate medications and make changes as indicated. Likely length of stay 3-5 days. But could be longer with 21-day hold. Coding Level of Care Code Acute Code for Chg Fwd Diagnoses Acute psychosis F23 Foreign body in left foot S90.852A Breast feeding status of mother Z39.1 Cannabis use disorder F12.90
[2023-08-08] MEDS: ARIPiprazole Maintena 400 MG IM (10:03)
[2023-08-08 14:00] VITALS: BP 149/87; PULSE 104; RESP 18; TEMP 37.1; O2SAT 96
[2023-08-08] MEDS: OLANZapine 5 mg ODT PO (19:49)
[2023-08-08 21:07] VITALS: BP 131/90; PULSE 86; RESP 18; TEMP 36.2; O2SAT 98
[2023-08-09 06:00] VITALS: BP 104/67; PULSE 99; RESP 16; TEMP 36.5; O2SAT 98
--- NOTE | 2023-08-09 06:41 | P.NPUPN_ITS ---
Subjective NPU 2 Subjective: Patient presented today continuing to focus on discharge sooner rather than later. We discussed speaking with her father and concerns about statements she is making suggesting that she knows things ahead of time, continued conspiracies about everyone either trafficking, trying to traffic or being pawns in an attempt to traffic her or somehow managed her life. We discussed her continued to delusions of reference and that she would meet Dr. Delgadillo tomorrow and he would independently assessed the situation. She reported that she does understand that her references to these conspiracies may constitute delusions and that given these things she needs more time in the hospital and seem to be genuine about that report. She did deny any side effects to the medications and reported some neck pain. Mental Status Exam 2 MSE Comments: This is an underweight white female in hospital scrubs with adequate grooming and eye contact. No abnormal movements except for mild psychomotor retardation. Cooperative with exam in mild to moderate distress. Speech was decreased rate and volume. Mood described as a little better, affect congruent and tearful. Thought process mostly organized. Thought content: Patient endorsed anxiety, insomnia, depression, no current thoughts of self-harm or harm to others. She denied active suicidal or homicidal ideation, there were no delusions reported but significant odd and bizarre delusions of reference noted, paranoia, persecutory delusions noted, she denied auditory hallucinations to some degree but another time seem to report things it seems like auditory hallucinations but denied visual hallucinations. Attention and concentration was mostly intact and memory was mostly reliable but none were formally tested. She is alert and oriented x 3. Insight is poor but improving judgment is limited and impulse control is improving. Vitals/I&O/Wt Last Vital Signs Temp 97.7 F 08/09/23 06:00 Pulse 99 08/09/23 06:00 Resp 16 08/09/23 06:00 BP 104/67 08/09/23 06:00 Pulse Ox 98 08/09/23 06:00 O2 Del Method Room Air 08/08/23 14:00 Data NPU 07/29/23 14:19 07/29/23 14:19 A&P Assessment and plan (1) Acute psychosis: (2) Foreign body in left foot: (3) Breast feeding status of mother: (4) Cannabis use disorder: Plan This is a 28-year-old white female who presents with symptoms of anxiety, insomnia, and depression. She also reports unusual beliefs and experiences such as feeling that aliens are communicating with her and that she can hear people's thoughts. She has a history of trying Zoloft for her symptoms but is resistant to medication and prefers a more holistic approach to her mental health. Possible thought disorder noted, further evaluation needed. Agreed to exploring antipsychotic with special attention to breast-feeding concerns. 1. Evaluate for appropriate antipsychotic given breast-feeding considerations. Increased Abilify from 5 to 10 mg p.o. daily. Will consider increasing to 15 mg and discussing long-acting injectable. Abilify Maintena 400 mg IM given 08/07/2023. Will need 11 more days of oral cross coverage. 2. Continue every 15 minute checks for safety. 3. Encourage individual, group and milieu therapy. 4. Encourage sober living treatment after discharge at the highest level care to which she is willing to commit. 5. Obtain hospitalist consult for possible mastitis and foreign body in foot. 6. Evaluate for safety for 96-hour hold. Get collateral information from family/significant others. 21-day hold granted 08/05/2023. 7. Patient continues to struggle with signs of limited judgment. Jose significant disability and need for assistance noted. Involuntary Hold Information 2 96 Hour Hold: 96 Hour Involuntary Admission: Yes 96 Hour Hold Ending Date: 08/04/23 96 Hour Hold Ending Time: 14:35 Attestations NPU 2 Medical Necessity Statement*: Inpatient hospitalization is medically necessary and the clinically appropriate intervention at this time. We will monitor/initiate medications and make changes as indicated. Likely length of stay 3-5 days. But could be longer with 21-day hold. Coding Level of Care Code Acute Code for Chg Fwd Diagnoses Acute psychosis F23 Foreign body in left foot S90.852A Breast feeding status of mother Z39.1 Cannabis use disorder F12.90
[2023-08-09] MEDS: ARIPiprazole 30 mg Tablet 15 MG PO (07:40)
[2023-08-09] MEDS: acetaminophen 325 mg Tablet 650 MG PO (08:48)
[2023-08-09] MEDS: nicotine 2 mg Gum BUCCAL ×4 (09:25→19:10)
[2023-08-09] MEDS: hyDROXYzine 25 mg Capsule 50 MG PO ×2 (09:26→16:01)
[2023-08-09 14:00] VITALS: RESP 18
[2023-08-09] MEDS: OLANZapine 5 mg ODT PO ×2 (14:44→19:18)
[2023-08-09 19:37] VITALS: BP 122/84; PULSE 98; RESP 16; TEMP 36.8; O2SAT 97
[2023-08-10] MEDS: nicotine 4 mg lozenge MUCOUS MEM (05:51)
[2023-08-10] MEDS: hyDROXYzine 25 mg Capsule 50 MG PO ×2 (05:51→12:20)
[2023-08-10] MEDS: nicotine 2 mg Gum BUCCAL ×6 (05:54→19:52)
[2023-08-10 06:00] VITALS: BP 117/82; PULSE 96; RESP 18; TEMP 36.4; O2SAT 100
[2023-08-10] MEDS: ARIPiprazole 30 mg Tablet 15 MG PO (09:15)
[2023-08-10 14:00] VITALS: BP 146/90; PULSE 111; RESP 14; TEMP 36.8; O2SAT 98
--- NOTE | 2023-08-10 15:00 | P.NPUPN_ITS ---
Subjective NPU 2 Subjective: 28-year-old female with a history of biz arre delusions leading to her current hospitalization currently on Abilify. Patient had reported that she was feeling better on the Abilify. She had stated initially today that she had felt that the reason she was here was that she had become manic after she had stopped Zoloft 25 mg abruptly. She had later expressed concern that there were people around her that were somehow engaged in nefarious activities and stated that she continued to feel anxious about someone possibly trying to traffic her sexually. She had reported that she had felt anxious about her life somehow being in danger. She had been unable to express a reason as to why she was being singled out but stated that there were several people that appear to be involved. She had complained of a myriad of other symptoms including some neck pain along with other side effects from her medication. She had expressed that she wished to be discharged as soon as possible. She had been compliant and redirectable on the milieu. Mental Status Exam 2 MSE Comments: This is an underweight white female in hospital scrubs with adequate grooming and eye contact with green hair. No abnormal movements except for mild psychomotor retardation. Cooperative with exam in mild to moderate distress. Speech was normal in rate and volume. Mood described as a okay. Affect was odd and subdued. Thought process mostly organized. Thought content: She denied active suicidal or homicidal ideation. There was evidence of ideas of reference with delusions of persecution. She did not appear to be responding to internal stimuli. There is no clear evidence of delusional auditory or visual hallucinations. Attention and concentration was mostly intact and memory was mostly reliable but none were formally tested. She is alert and oriented x 3. Insight is poor but improving judgment is limited and impulse control is improving. Vitals/I&O/Wt Last Vital Signs Temp 98.2 F 08/10/23 14:00 Pulse 111 H 08/10/23 14:00 Resp 14 08/10/23 14:00 BP 146/90 08/10/23 14:00 Pulse Ox 98 08/10/23 14:00 O2 Del Method Room Air 08/10/23 06:00 Weight last 48 hrs Weight 48.444 kg Data NPU 07/29/23 14:19 07/29/23 14:19 A&P Assessment and plan (1) Acute psychosis: (2) Foreign body in left foot: (3) Breast feeding status of mother: (4) Cannabis use disorder: Plan This is a 28-year-old white female who presents with symptoms of anxiety, insomnia, and depression. She also reports unusual beliefs and experiences such as feeling that aliens are communicating with her and that she can hear people's thoughts. She has a history of trying Zoloft for her symptoms but is resistant to medication and prefers a more holistic approach to her mental health. Possible thought disorder noted, further evaluation needed. Agreed to exploring antipsychotic with special attention to breast-feeding concerns. 1. Evaluate for appropriate antipsychotic given breast-feeding considerations. Continue abilify 15mg daily as prescribed. Abilify Maintena 400 mg IM given 08/07/2023. Will need 11 more days of oral cross coverage. 2. Continue every 15 minute checks for safety. 3. Encourage individual, group and milieu therapy. 4. Encourage sober living treatment after discharge at the highest level care to which she is willing to commit. 5. Obtain hospitalist consult for possible mastitis and foreign body in foot. 6. Evaluate for safety for 96-hour hold. Get collateral information from family/significant others. 21-day hold granted 08/05/2023. 7. Patient continues to struggle with signs of limited judgment. Jose significant disability and need for assistance noted. Involuntary Hold Information 2 96 Hour Hold: 96 Hour Involuntary Admission: Yes 96 Hour Hold Ending Date: 08/04/23 96 Hour Hold Ending Time: 14:35 Attestations NPU 2 Medical Necessity Statement*: Inpatient hospitalization is medically necessary and the clinically appropriate intervention at this time. We will monitor/initiate medications and make changes as indicated. The patient's likely length of stay is 5-10 days. Coding Level of Care Code Acute Code for Chg Fwd Diagnoses Acute psychosis F23 Foreign body in left foot S90.852A Breast feeding status of mother Z39.1 Cannabis use disorder F12.90
[2023-08-10] MEDS: haloperidol 5 mg Tablet PO (16:03)
--- NOTE | 2023-08-10 16:59 | PC.NURSE ---
Patient talking on phone. This nurse heard yelling and banging, saw patient banging phone against wall. Staff went to check on patient. Patient yelling, stating that the doctor thinks she is crazy and is it crazy that she wants to be home with her one year old daughter and her family? Patient kept stating, I have a one-year old, I am her mother! The doctor is a fucking idiot! Patient then demanded to be seen by the doctor. This nurse informed patient that I can ask for him to see her, but I cannot guarantee he will. Dr. Delgadillo said to give her haldol and he would see her tomorrow. Administered haldol 5mg PO to patient. When this nurse went to give her the medication, patient stated, what the hell is this? Why does my medicine look different, it's usually two green pills. This nurse informed patient that she is getting haldol right now because it is what the docotor wants and because this is for agitation. Patient finally agreed to take the medication.
[2023-08-10] MEDS: trazodone 50 mg Tablet PO (19:54)
[2023-08-10 19:59] VITALS: BP 146/91; PULSE 87; RESP 16; TEMP 36.8; O2SAT 96
[2023-08-11] MEDS: OLANZapine 5 mg ODT PO ×3 (03:15→17:31)
[2023-08-11 05:48] VITALS: BP 113/76; PULSE 93; RESP 16; TEMP 36.7; O2SAT 100
[2023-08-11] MEDS: hyDROXYzine 25 mg Capsule 50 MG PO ×3 (07:41→19:47)
[2023-08-11] MEDS: nicotine 2 mg Gum BUCCAL ×5 (07:42→19:47)
[2023-08-11] MEDS: ARIPiprazole 30 mg Tablet 15 MG PO (07:42)
[2023-08-11 14:00] VITALS: BP 118/87; PULSE 85; RESP 18; TEMP 36.6; O2SAT 100
--- NOTE | 2023-08-11 16:54 | P.NPUPN_ITS ---
Subjective NPU 2 Subjective: 28-year-old female with a history of biz arre delusions leading to her current hospitalization currently on Abilify. The patient reported having less concern regarding thoughts of being trafficked. She reported no side effects from Abilify. She had stated that she remained frustrated about not being able to return home patient had reported that she was feeling better on the Abilify. She reported no feelings of hopelessness. Patient was informed about the concern that the team had regarding the patient's ability to manage herself in particular he manage her 1-year-old child who she states was predominantly managed and cared for by [facility]. Patient denied any depressed mood today but reported that she had been feeling anxious. Mental Status Exam 2 MSE Comments: This is an underweight white female in hospital scrubs with adequate grooming and eye contact with green hair. No abnormal movements except for mild psychomotor retardation. Cooperative with exam in mild to moderate distress. Speech was normal in rate and volume. Mood described as a okay. Affect was odd and subdued. Thought process was linear and organized. Thought content: She denied active suicidal or homicidal ideation. There was evidence of ideas of reference with some paranoia appreciated. She did not appear to be responding to internal stimuli. There is no clear evidence of delusional auditory or visual hallucinations. Attention and concentration was mostly intact and memory was mostly reliable but none were formally tested. She is alert and oriented x 3. Insight is poor but improving judgment is limited and impulse control is improving. Vitals/I&O/Wt Last Vital Signs Temp 97.8 F 08/11/23 14:00 Pulse 85 08/11/23 14:00 Resp 18 08/11/23 14:00 BP 118/87 08/11/23 14:00 Pulse Ox 100 08/11/23 14:00 O2 Del Method Room Air 08/10/23 19:59 Weight last 48 hrs Weight 48.444 kg Data NPU 07/29/23 14:19 07/29/23 14:19 A&P Assessment and plan (1) Acute psychosis: (2) Foreign body in left foot: (3) Breast feeding status of mother: (4) Cannabis use disorder: Plan This is a 28-year-old white female who presents with symptoms of anxiety, insomnia, and depression. She also reports unusual beliefs and experiences such as feeling that aliens are communicating with her and that she can hear people's thoughts. She has a history of trying Zoloft for her symptoms but is resistant to medication and prefers a more holistic approach to her mental health. Possible thought disorder noted, further evaluation needed. Agreed to exploring antipsychotic with special attention to breast-feeding concerns. 1. Evaluate for appropriate antipsychotic given breast-feeding considerations. Continue abilify 15mg daily as prescribed. Abilify Maintena 400 mg IM given 08/07/2023. Will need 9 more days of oral cross coverage. 2. Continue every 15 minute checks for safety. 3. Encourage individual, group and milieu therapy. 4. Encourage sober living treatment after discharge at the highest level care to which she is willing to commit. 5. Obtain hospitalist consult for possible mastitis and foreign body in foot. 6. Evaluate for safety for 96-hour hold. Get collateral information from family/significant others. 21-day hold granted 08/05/2023. 7. Patient continues to struggle with signs of limited judgment. Jose significant disability and need for assistance noted. Involuntary Hold Information 2 96 Hour Hold: 96 Hour Involuntary Admission: Yes 96 Hour Hold Ending Date: 08/04/23 96 Hour Hold Ending Time: 14:35 Attestations NPU 2 Medical Necessity Statement*: Inpatient hospitalization is medically necessary and the clinically appropriate intervention at this time. We will monitor/initiate medications and make changes as indicated. The patient's likely length of stay is 5-10 days. Coding Level of Care Code Acute Code for Chg Fwd Diagnoses Acute psychosis F23 Foreign body in left foot S90.852A Breast feeding status of mother Z39.1 Cannabis use disorder F12.90
[2023-08-11] MEDS: trazodone 50 mg Tablet PO (19:47)
[2023-08-11 20:34] VITALS: BP 127/83; PULSE 114; RESP 18; TEMP 36.5; O2SAT 98
[2023-08-12 06:00] VITALS: BP 122/75; PULSE 84; RESP 16; TEMP 36.8; O2SAT 97
[2023-08-12] MEDS: nicotine 2 mg Gum BUCCAL ×5 (06:47→15:26)
[2023-08-12] MEDS: ARIPiprazole 30 mg Tablet 15 MG PO (07:54)
[2023-08-12] MEDS: hyDROXYzine 25 mg Capsule 50 MG PO (07:55)
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
[2023-08-12 14:31] VITALS: BP 122/75; PULSE 84; RESP 16; TEMP 36.8; O2SAT 97
== END 2023-08-12 16:31 | disposition home or self-care (01) | DRG 885 ==
LOC: ER 16:13 → NP 16:51
PROVIDERS: Admitting Provider Psychiatry & Neurology Psychiatry; Emergency Provider Emergency Medicine; Visit Provider Psychiatry & Neurology Psychiatry
DX: F23 Brief psychotic disorder (principal); F41.9 Anxiety disorder, unspecified; G47.00 Insomnia, unspecified; F12.90 Cannabis use, unspecified, uncomplicated; F17.210 Nicotine dependence, cigarettes, uncomplicated; F17.290 Nicotine dependence, other tobacco product, uncomplicated; N64.59 Other signs and symptoms in breast
CPT/HCPCS: 36415; 73630; 80053; 80306; 80307; 81025; 85025; 96372; 97150; 97165; 97167; 99285

== ENCOUNTER 2023-08-13 11:11 | Inpatient (IN) | payer SELFPAY ==
[2023-08-13 11:12] VITALS: BP 139/85; PULSE 85; TEMP 36.5; O2SAT 98; BMI 17.3
[2023-08-13 11:48] LABS: Add Urine Microscopic? NO; Charge for UA Resulting for Rev
[2023-08-13 11:50] LABS: Basophils % 0.7 %; Eosinophils # 0.1 10^3/uL (0.0-0.8); Eosinophils % 0.9 %; Hematocrit 38.8 % (36-47); Lymphocytes % 34.8 %; Mean Corpuscular HGB Conc 33.8 g/dL (30-55); Mean Corpuscular Hemoglobin 30.3 pg (27-33); Mean Corpuscular Volume 89.6 fl (85-98); Mean Platelet Volume 10.7 fL (7.4-10.4); Monocytes # 0.4 10^3/uL (0.2-0.9); Monocytes % 7.6 %; Neutrophils # 3.24 10^3/uL (1.8-7.7); Neutrophils % 55.8 %; Nucleated Red Blood Cells % 0 %; Platelet Count 213 10^3/cmm (157-399); Red Blood Count 4.33 10^6/uL (3.85-5.65); Red Cell Distribution Width 13.2 % (12.1-15.1)
[2023-08-13 11:55] LABS: HCG Qualitative Urine. Negative (Negative)
[2023-08-13 11:58] LABS: Amphetamines Screen Urine Negative (Negative); Barbiturates Screen Urine Negative (Negative); Benzodiazepines Screen Urine Negative (Negative); Cocaine Screen Urine Negative (Negative); Opiate Screen Urine Negative (Negative); PCP Screen Urine Negative (Negative); THC Screen Urine Positive (Negative)
--- NOTE | 2023-08-13 11:58 | ED.C_ITS ---
HPI - Psych 2 General: Chief Complaint: Psychiatric Symptoms Stated Complaint: MHE Time Seen by Provider: 08/13/23 11:14 History of Present Illness: Patient presents to the ER to be evaluated for insomnia, depression, multiple other complaints. Patient was just released from [facility] approximately [address] Simons and down to the ER because he has been in touch with the patient and her family. Dr. Simons says she has been doing some strange things and she been home and probably needs to come back in the hospital. Patient is willing. Review of Systems 2 General: Reports: 10 or more systems reviewed and unremarkable except in HPI and below Physical Exam 2 Const: COMMON NORMALS: no acute distress, average body habitus, patient oriented x3, no limitations, healthy appearing, alert and well nourished Neck/C-Spine: COMMON NORMALS: no JVD Chest: COMMONS NORMALS: normal inspection of the chest and normal palpation of entire chest wall Resp: COMMON NORMALS: normal respiratory effort, No retractions, No use of accessory muscles and clear to auscultation bilaterally AUSCULTATION: clear to auscultation bilaterally Cardio: COMMON NORMALS: no JVD, regular rate, regular rhythm, S1 normal heart sound present, S2 normal heart sound present, No gallops present (Cardio), No clicks present (Cardio), No murmurs present (Cardio) and No rub (Cardio) R ATE: regular rate RHYTHM: regular rhythm HEART SOUNDS: S1 normal heart sound present and S2 normal heart sound present GI: COMMON NORMALS: Normal to inspection, nondistended, normoactive bowel sounds present, Soft to palpation, non-tender, No hepatosplenomegaly present and no masses PALPATION: Yes Soft to palpation and Yes No hepatosplenomegaly present Neuro: COMMON NORMALS: patient oriented x3 SENSORIUM/ORIENTATION: Yes alert Course 2 Vital Signs: Vital signs: Vital Signs Temperature 97.7 F 08/13/23 11:12 Pulse Rate 85 08/13/23 11:12 Blood Pressure 139/85 08/13/23 11:12 Pulse Oximetry 98 08/13/23 11:12 Oxygen Delivery Me thod Room Air 08/13/23 11:12 MDM - Psych Medical Decision Making Patient be readmitted to the hospital for further evaluation per Dr. Simons. Patient is agreeable. Differential Diagnosis Unlikely acute psychosis, chronic schizophrenia, suicidal ideation, bipolar disorder, depression, drug-induced psychotic disorder or acute anxiety Medical Records I reviewed the patient's medical records. Lab Data I reviewed the patient's lab results. 08/13/23 11:42 08/13/23 11:42 Laboratory Results WBC 5.80 10^3/uL (3.29-11.43) 08/13/23 11:42 RBC 4.33 10^6/uL (3.85-5.65) 08/13/23 11:42 Hgb 13.10 g/dL (11.27-16.99) 08/13/23 11:42 Hct 38.8 % (36-47) 08/13/23 11:42 MCV 89.6 fl (85-98) 08/13/23 11:42 MCH 30.3 pg (27-33) 08/13/23 11:42 MCHC 33.8 g/dL (30-55) 08/13/23 11:42 RDW 13.2 % (12.1-15.1) 08/13/23 11:42 Plt Count 213 10^3/cmm (157-399) 08/13/23 11:42 MPV 10.7 fL (7.4-10.4) H 08/13/23 11:42 Neut % (Auto) 55.8 % 08/13/23 11:42 Lymph % (Auto) 34.8 % 08/13/23 11:42 [place] % (Auto) 7.6 % 08/13/23 11:42 Eos % (Auto) 0.9 % 08/13/23 11:42 Baso % (Auto) 0.7 % 08/13/23 11:42 Neut # (Auto) 3.24 10^3/uL (1.8-7.7) 08/13/23 11:42 Lymph # (Auto) 2.0 10^3/uL (0.8-4.8) 08/13/23 11:42 [place] # (Auto) 0.4 10^3/uL (0.2-0.9) 08/13/23 11:42 Eos # (Auto) 0.1 10^3/uL (0.0-0.8) 08/13/23 11:42 Baso # (Auto) 0.0 10^3/uL (0.0-0.1) 08/13/23 11:42 Nucleated RBC % (auto) 0 % 08/13/23 11:42 Nucleated RBCs # 0.0 /100WBC 08/13/23 11:42 HCG, Qual Negative (Negative) 08/13/23 11:35 No radiology studies performed this visit Discharge Plan Discharge Patient Disposition: Admitted As Inpatient Clinical Impression: Acute psychosis Condition: Stable Coding Level of Care Code ED Tax Collection Coordinator for Charlene Molina
[2023-08-13 12:02] LABS: Urine Appearance Clear (CLEAR); Urine Color Light yellow (Yellow)
[2023-08-13 12:03] LABS: Bilirubin Urine Neg (Negative); Blood Urine Neg (Negative); Glucose Urine UA Norm (Normal); Ketones Urine Negative (Negative); Leukocyte Esterase Urine Negative (Negative); Nitrate Urine Negative (Negative); Protein Urine Neg (Negative); Sulfosalicylic Acid Urine Negative (Negative); Urobilinogen Urine Norm (Negative); pH Urine 8 (5-7)
[2023-08-13 12:08] LABS: Acetaminophen < 5.0 ug/mL (10-30); Alanine Aminotransferase 43 U/L (0-33); Albumin Level 4.2 g/dL (3.5-5.2); Alcohol Level < 10 mg/dL (0-10); Alkaline Phosphatase 75 U/L (35-105); Anion Gap 11.9 (5-19); Aspartate Amino Transferase 36 U/L (0-32); Blood Urea Nitrogen 8 mg/dL (6-20); Calcium 9.4 mg/dL (8.5-10.5); Carbon Dioxide 28 mmol/L (22-29); Chloride 103 mmol/L (98-107); Creatinine Clr Calc Pharmacy 94.6328; Globulin 2.9 g/dL (1.3-4.6); Glomerular Filtration Rate 101.1 mL/min (90-130); Glucose 85 mg/dL (65-115); Osmolality Calculated 286 mOsm/kg (285-295); Potassium 3.9 mmol/L (3.5-5.1); Salicylate < 0.3 mg/dL (3-10); Sodium 139 mmol/L (136-145); Total Bilirubin 0.3 mg/dL (0.15-1.2); Total Protein 7.1 g/dL (6.6-8.7)
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
[2023-08-13 14:00] VITALS: BP 144/93; PULSE 88; RESP 16; TEMP 36.7; O2SAT 100
[2023-08-13] MEDS: nicotine 2 mg Gum BUCCAL ×3 (14:23→19:55)
[2023-08-13] MEDS: hyDROXYzine 25 mg Capsule 50 MG PO (14:23)
--- NOTE | 2023-08-13 15:51 | PC.NURSE ---
EVS/housekeeping down to unit to clean bed in 151-2, pt came walking from dayroom saying she had already taken her sheets and pillow case off ready for them when asked why she removed the sheets from her bed pt stated the room just didnt feel right to me so i had to do something about it to the point i felt uncomfortable even sitting in here .Explained to pt that her side of the room had been cleaned and fresh linen used to make bed pt stated oh ok well i had to do something to make it more me . pt then turned away walking back to dayroom.
[2023-08-13] MEDS: OLANZapine 5 mg ODT PO (19:55)
[2023-08-13] MEDS: trazodone 50 mg Tablet PO (20:32)
--- NOTE | 2023-08-13 21:03 | PC.NURSE ---
PT PACES HALLS AND IS ON THE PHONE FREQUENTLY. PT IS REQUESTING SHE WANTS TO LEAVE. PT DID SPEAK TO DAD AND EVENTUALLY STATED SHE WOULD STAY FOR NOW. PT HAS NON-SPECIFIC THOUGHTS OF HARMING HERSELF IF I HAVE TO STAY HERE. NO PLAN. WHEN ASKED IF SHE HAD THOUGHTS OF HARMING OTHERS PT STATED JUST MYSELF IF I STAY HERE I ALREADY TOLD YOU THAT. DENIES VH AT THIS TIME. WHEN ASKED IF SHE IS HEARING VOICES SHE STATED JUST MYSELF TELLING ME THAT I NEED TO LEAVE, BUT ITS MY VOICE, NO VOICES. RATES ANXIETY 01/06, ZYDIS 5 MG GIVEN FOR INCREASED ANXIETY. PT WAS OFFERED TRAZODONE BUT DECLINED AFTER RN PULLED THE MEDICATION. RN THEN RETURNED TRAZODONE 50 MG TO THE PIXIS. PT THEN CAME TO THE NURSES STATION REQUESTING TRAZOODONE. RN PULLED ANOTHER TRAZODONE 50MG AND IT WAS GIVEN ORDERED FOR INSOMNIA. PT IS INTRUSIVE AND DEMANDING SHE BE GIVEN A SHIRT AND A PEN THAT SOMEONE TOOK DOWN IN THE ER. PT WAS ASSURED THAT RN WOULD PASS ON THAT SHE IS NEEDING HER PEN BACK FROM THE LADY IN ER. RN WILL LET DAYSHIFT KNOW THAT SHE IS MISSING HER PEN. RN AND SALES AND TRAINING SPECIALIST LOOKED ON INVENTORY LIST AND NO PEN WAS OBSERVED TO BE ON THE LIST. PT IS DEMANDING AND INTRUSIVE AT TIMES DEMANDING TO SEE HER CHART, INVENTORY LIST ETC. PT WAS SHOWN HER INVENTORY LIST AND RN ASSURED PT THAT ONCE MEDICATIONS WERE GIVEN I WOULD GO OVER HER MEDIATIONS. PT VERBALIZED UNDERSTANDING. ALL QUESTIONS ANSWERED AND SUPPORT WAS VOICED
[2023-08-13 21:16] VITALS: BP 157/89; PULSE 86; RESP 18; O2SAT 96
[2023-08-14 06:00] VITALS: BP 120/66; PULSE 102; RESP 18; TEMP 36.8; O2SAT 99
--- NOTE | 2023-08-14 06:16 | PC.NURSE ---
PT WAS GIVEN ZYDIS 5 MG FOR INCREASED ANXIETY AND MILD AGITATION AFTER RECEIVING VISTARIL ON THE PREVIOUS SHIFT, PT STATED IT DID NOT WORK AND SHE NEEDED SOMETHING ELSE BECAUSE SHE COULD TELL I'M GETTING REALLY WORKED UP AND IT'S GOING TO BE BAD, PT ALSO RECEIVED TRAZODONE 50 MG FOR INSOMNIA EARLIER IN THE SHIFT SEE MAR FOR TIMES AND DETAILS. BOTH MEDICATIONS DEEMED EFFECTIVE AT THIS TIME. PT HAS BEEN OBSERVED HAVING DECREASED ANXIETY AND WAS ABLE TO LAY DOWN AND REST. PT SLEPT APPROXIMATELY 8-9 HOURS THIS SHIFT. PT CONTINUES TO REST WITH EYES CLOSED IN BED. NO DISTRESS IS NOTED AT THIS TIME.
[2023-08-14] MEDS: nicotine 2 mg Gum BUCCAL ×4 (08:25→16:56)
--- NOTE | 2023-08-14 09:55 | PC.NURSE ---
Patient obsessive over plant that she saw in the CSU hallway when she was being transferred from the ED to the NPU. Patient has asked this RN twice to see if anyone is wanting the plant or taking care of the plant, because if nobody is she wants to take it home because it was her mother's favorite plant. She has also asked multiple other staff members this same question.
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
[2023-08-14] MEDS: ARIPiprazole 30 mg Tablet 15 MG PO (10:00)
[2023-08-14] MEDS: hyDROXYzine 25 mg Capsule 50 MG PO ×2 (10:00→15:25)
[2023-08-14 14:00] VITALS: BP 115/73; PULSE 114; RESP 16; TEMP 36.9; O2SAT 98
[2023-08-14] MEDS: OLANZapine 5 mg ODT PO (17:57)
[2023-08-14 19:26] VITALS: BP 101/67; PULSE 92; RESP 16; TEMP 36.4; O2SAT 98
[2023-08-15] MEDS: nicotine 2 mg Gum BUCCAL ×5 (04:02→19:55)
[2023-08-15 06:00] VITALS: BP 107/70; PULSE 79; RESP 17; TEMP 36.7; O2SAT 98
[2023-08-15] MEDS: OLANZapine 5 mg ODT PO ×2 (06:18→22:11)
[2023-08-15] MEDS: hyDROXYzine 25 mg Capsule 50 MG PO (08:19)
[2023-08-15] MEDS: ARIPiprazole 30 mg Tablet 15 MG PO (08:19)
[2023-08-15 14:00] VITALS: BP 124/77; PULSE 100; RESP 13; TEMP 36.8; O2SAT 99
--- NOTE | 2023-08-15 17:43 | P.NPUPN_ITS ---
Subjective NPU 2 Subjective: 28-year-old female with a history of biz arre delusions and inability to care for herself or her 1-year-old child readmitted in 24 hours after discharge from the NPU. The patient continues to attempt to convey that everything is fine and that she would be able to manage things when she gets home. She does not appear to offer any substantial information or plans about how she would execute or complete routine daily activities to care for her child. She stated that she no longer had felt that she was being trafficked but continued to speculate that her aunt and her 's maternal grandmother was somehow trying to sabotage her ability to live there. She had been able to attend groups. She had required some prompting for completion of activities of daily living. Mental Status Exam 2 MSE Comments: This is an underweight white female in hospital scrubs with adequate grooming and eye contact. No abnormal movements except for mild psychomotor retardation. She was cooperative with exam in mild distress. Speech was decreased in rate and normal in volume. Mood described as allright Her affect was mood incongruent and subdued. Thought process was linear but superficial today. Thought content: She denied active suicidal or homicidal ideation. She did not appear to be responding to internal stimuli. There was still some covert ideas of reference. Attention and concentration was mostly intact and memory was mostly reliable but none were formally tested. She is alert and oriented times person and place today. Insight, judgment and impulse control are impaired. Vitals/I&O/Wt Last Vital Signs Temp 98.3 F 08/15/23 14:00 Pulse 100 08/15/23 14:00 Resp 13 08/15/23 14:00 BP 124/77 08/15/23 14:00 Pulse Ox 99 08/15/23 14:00 O2 Del Method Room Air 08/15/23 06:00 Data NPU 08/13/23 11:42 08/13/23 11:42 A&P Assessment and plan (1) Acute psychosis: (2) Foreign body in left foot: (3) Breast feeding status of mother: (4) Cannabis use disorder: Plan This is a 28-year-old white female who presents with psychosis 1 day after discharge with patient admitting to recent THC use. 1. Increase abilify to 20mg daily. Repeat ARI on 08/18/23 2. Continue every 15 minute checks for safety. 3. Encourage individual, group and milieu therapy. 4. Encourage sober living treatment after discharge at the highest level care to which she is willing to commit. Involuntary Hold Information 2 96 Hour Hold: 96 Hour Involuntary Admission: No 96 Hour Hold Ending Date: 0 08/04/23 96 Hour Hold Ending Time: 14:35 Attestations NPU 2 Medical Necessity Statement*: Inpatient hospitalization is medically necessary and the clinically appropriate intervention at this time. We will monitor/initiate medications and make changes as indicated. Her likely length of stay 4 to 6 days. Coding Level of Care Code Acute Code for Chg Fwd Diagnoses Acute psychosis F23 Foreign body in left foot S90.852A Breast feeding status of mother Z39.1 Cannabis use disorder F12.90
[2023-08-15 20:38] VITALS: BP 115/78; PULSE 89; RESP 18; TEMP 36.4; O2SAT 99
[2023-08-16 06:00] VITALS: BP 125/84; PULSE 100; RESP 18; TEMP 36.4; O2SAT 94
[2023-08-16] MEDS: nicotine 21 mg Patch 1 PATCH TRANSDERMA (06:09)
[2023-08-16] MEDS: nicotine 2 mg Gum BUCCAL ×2 (07:59→19:58)
[2023-08-16] MEDS: ARIPiprazole 10 mg Tablet 20 MG PO (07:59)
[2023-08-16] MEDS: hyDROXYzine 25 mg Capsule 50 MG PO ×2 (08:17→16:28)
[2023-08-16] MEDS: nicotine 4 mg lozenge MUCOUS MEM ×3 (11:00→17:44)
[2023-08-16] MEDS: acetaminophen 325 mg Tablet 650 MG PO (11:00)
--- NOTE | 2023-08-16 12:30 | P.NPUPN_ITS ---
Subjective NPU 2 Subjective: 28-year-old female with a history of biz arre delusions and inability to care for herself or her 1-year-old child readmitted in 24 hours after discharge from the NPU. Patient had admitted that marijuana was not something that she could use again. She continued to state that the Abilify was helping her. She had reported that her stress was being lifted as she would no longer have to live with her fianc?'s grandmother. She reported no concerns about being trafficked. She reported no thoughts of hurting herself or others. She had reported that her thoughts were more clear at this time. Patient had suggested that she had not had even a moment really to care for her baby after her discharge from here. Mental Status Exam 2 MSE Comments: This is an underweight white female in hospital scrubs with adequate grooming and eye contact. No abnormal movements except for mild psychomotor retardation. She was cooperative with exam in mild distress. Speech was decreased in rate and normal in volume. Mood described as okay. Her affect was odd and subdued still. Thought process was linear. Thought content: She denied active suicidal or homicidal ideation. She did not appear to be responding to internal stimuli. No ideas of reference noted. Attention and concentration was mostly intact and memory was mostly reliable but none were formally tested. She is alert and oriented times person and place today. Insight, judgment and impulse control are impaired. Vitals/I&O/Wt Last Vital Signs Temp 97.6 F 08/16/23 06:00 Pulse 100 08/16/23 06:00 Resp 18 08/16/23 06:00 BP 125/84 08/16/23 06:00 Pulse Ox 94 08/16/23 06:00 O2 Del Method Room Air 08/16/23 06:00 Data NPU 08/13/23 11:42 08/13/23 11:42 A&P Assessment and plan (1) Acute psychosis: (2) Foreign body in left foot: (3) Breast feeding status of mother: (4) Cannabis use disorder: Plan This is a 28-year-old white female who presents with psychosis 1 day after discharge with patient admitting to recent THC use. 1. Continue abilify to 20mg daily. Repeat ARI on 08/18/23 2. Continue every 15 minute checks for safety. 3. Encourage individual, group and milieu therapy. 4. Encourage sober living treatment after discharge at the highest level care to which she is willing to commit. Involuntary Hold Information 2 96 Hour Hold: 96 Hour Involuntary Admission: No 96 Hour Hold Ending Date: 0 08/04/23 96 Hour Hold Ending Time: 14:35 Attestations NPU 2 Medical Necessity Statement*: Inpatient hospitalization is medically necessary and the clinically appropriate intervention at this time. We will monitor/initiate medications and make changes as indicated. Her likely length of stay 4 to 6 days. Coding Level of Care Code Acute Code for Chg Fwd Diagnoses Acute psychosis F23 Foreign body in left foot S90.852A Breast feeding status of mother Z39.1 Cannabis use disorder F12.90
[2023-08-16 14:00] VITALS: BP 125/84; PULSE 97; RESP 16; TEMP 37; O2SAT 97
[2023-08-16] MEDS: alum-mag-hydroxide-sime 30 mL UDC PO (16:42)
[2023-08-16] MEDS: calcium carbonate 500 mg Chew Tablet PO (18:05)
[2023-08-16] MEDS: magnesium hydroxide 30 mL UDC PO (18:05)
[2023-08-16] MEDS: OLANZapine 5 mg ODT PO ×2 (18:12→22:04)
[2023-08-16] MEDS: trazodone 50 mg Tablet PO (19:57)
[2023-08-16 20:11] VITALS: BP 119/87; PULSE 104; RESP 18; TEMP 36.7; O2SAT 96
[2023-08-17 05:59] VITALS: BP 106/62; PULSE 76; RESP 16; TEMP 36.6; O2SAT 98
[2023-08-17] MEDS: ARIPiprazole 10 mg Tablet 20 MG PO (07:32)
[2023-08-17] MEDS: hyDROXYzine 25 mg Capsule 50 MG PO ×2 (07:32→14:27)
[2023-08-17] MEDS: nicotine 4 mg lozenge MUCOUS MEM ×4 (07:32→17:19)
[2023-08-17] MEDS: OLANZapine 5 mg ODT PO (09:08)
[2023-08-17] MEDS: ibuprofen 600 mg Tablet PO (11:10)
[2023-08-17 14:00] VITALS: BP 114/83; PULSE 90; RESP 16; TEMP 36.8; O2SAT 97
--- NOTE | 2023-08-17 16:47 | P.NPUPN_ITS ---
Subjective NPU 2 Subjective: 28-year-old female with a history of biz arre delusions and inability to care for herself or her 1-year-old child readmitted in 24 hours after discharge from the NPU. patient was isolative on the milieu. She had reported that she was feeling better. She had expressed disappointment with not being able to see her today. She had reported having no thoughts about being trafficked. She had stated that she felt more optimistic about her future as she stated that she would likely be returning back to [place]. She reported adequate sleep. She had reported no problems with concentration. She reported left being less preoccupied by her worries. Mental Status Exam 2 MSE Comments: This is an underweight white female in hospital scrubs with adequate grooming and eye contact. No abnormal movements except for mild psychomotor retardation. She was cooperative with exam in mild distress. Speech was normal in rate and normal in volume. Mood described as allright. Her affect was restricted in range. Thought process was linear. Thought content: She denied active suicidal or homicidal ideation. She did not appear to be responding to internal stimuli. No ideas of reference noted. Attention and concentration was mostly intact and memory was mostly reliable but none were formally tested. She is alert and oriented times person and place today. Insight was improving. Judgment is limited and impulse control is guarded. Vitals/I&O/Wt Last Vital Signs Temp 98.2 F 08/17/23 14:00 Pulse 90 08/17/23 14:00 Resp 16 08/17/23 14:00 BP 114/83 08/17/23 14:00 Pulse Ox 97 08/17/23 14:00 O2 Del Method Room Air 08/17/23 14:00 Weight last 48 hrs Weight 52.163 kg Data NPU 08/13/23 11:42 08/13/23 11:42 A&P Assessment and plan (1) Acute psychosis: (2) Foreign body in left foot: (3) Breast feeding status of mother: (4) Cannabis use disorder: Plan This is a 28-year-old white female who presents with psychosis 1 day after discharge with patient admitting to recent THC use. 1. Continue abilify to 20mg daily. Repeat ARI on 08/18/23 2. Continue every 15 minute checks for safety. 3. Encourage individual, group and milieu therapy. 4. Encourage sober living treatment after discharge at the highest level care to which she is willing to commit. Involuntary Hold Information 2 96 Hour Hold: 96 Hour Involuntary Admission: No 96 Hour Hold Ending Date: 0 08/04/23 96 Hour Hold Ending Time: 14:35 Attestations NPU 2 Medical Necessity Statement*: Inpatient hospitalization is medically necessary and the clinically appropriate intervention at this time. We will monitor/initiate medications and make changes as indicated. Her likely length of stay 4 to 6 days. Coding Level of Care Code Acute Code for Chg Fwd Diagnoses Acute psychosis F23 Foreign body in left foot S90.852A Breast feeding status of mother Z39.1 Cannabis use disorder F12.90
[2023-08-17 20:22] VITALS: BP 104/64; PULSE 96; RESP 18; TEMP 36.3; O2SAT 96
[2023-08-18] MEDS: trazodone 50 mg Tablet PO (00:57)
[2023-08-18] MEDS: hyDROXYzine 25 mg Capsule 50 MG PO ×2 (05:12→15:38)
[2023-08-18] MEDS: acetaminophen 325 mg Tablet 650 MG PO (05:12)
[2023-08-18 06:00] VITALS: BP 97/63; PULSE 80; RESP 16; TEMP 36.2; O2SAT 98
[2023-08-18] MEDS: nicotine 2 mg Gum BUCCAL (06:01)
[2023-08-18] MEDS: alum-mag-hydroxide-sime 30 mL UDC PO (06:43)
[2023-08-18] MEDS: nicotine 4 mg lozenge MUCOUS MEM ×3 (07:37→14:43)
[2023-08-18] MEDS: ARIPiprazole 10 mg Tablet 20 MG PO (07:37)
[2023-08-18] MEDS: OLANZapine 5 mg ODT PO ×2 (09:55→17:52)
[2023-08-18 12:36] VITALS: BP 145/84; PULSE 87; RESP 14; TEMP 36.3; O2SAT 100
--- NOTE | 2023-08-18 13:06 | P.NPUPN_ITS ---
Subjective NPU 2 Subjective: 28-year-old female with a history of biz arre delusions and inability to care for herself or her 1-year-old child readmitted in 24 hours after discharge from the NPU. Patient had reported that she was feeling better. She states that she has good support from her . She was agreeable to another ARI to determine if there was any improvement. Patient was isolative on the milieu. She had reported that she was feeling better. Patient denied any hallucinations. She reported having no worries regarding being trafficked. She reports that she had felt pressure to please her 's aunt and grandmother but states that she had very limited amount of time with her child after she was last discharged from the npu last week. Mental Status Exam 2 MSE Comments: This is an underweight white female in hospital scrubs with adequate grooming and eye contact. No abnormal movements except for mild psychomotor retardation. She was cooperative with exam in mild distress. Speech was normal in rate and normal in volume. Mood described as good. Her affect was more euthymic today. Thought process was linear. Thought content: She denied active suicidal or homicidal ideation. She did not appear to be responding to internal stimuli. No ideas of reference noted. Attention and concentration was mostly intact and memory was mostly reliable but none were formally tested. She is alert and oriented times person and place today. Insight was improving. Judgment is limited and impulse control is guarded. Vitals/I&O/Wt Last Vital Signs Temp 97.3 F L 08/18/23 12:36 Pulse 87 08/18/23 12:36 Resp 14 08/18/23 12:36 BP 145/84 08/18/23 12:36 Pulse Ox 100 08/18/23 12:36 O2 Del Method Room Air 08/18/23 06:00 Weight last 48 hrs Weight 52.163 kg Data NPU 08/13/23 11:42 08/13/23 11:42 A&P Assessment and plan (1) Acute psychosis: (2) Foreign body in left foot: (3) Breast feeding status of mother: (4) Cannabis use disorder: Plan This is a 28-year-old white female who presents with psychosis 1 day after discharge with patient admitting to recent THC use. 1. Continue abilify to 20mg daily. Repeat ARI on 08/18/23 2. Continue every 15 minute checks for safety. 3. Encourage individual, group and milieu therapy. 4. Encourage sober living treatment after discharge at the highest level care to which she is willing to commit. Involuntary Hold Information 2 96 Hour Hold: 96 Hour Involuntary Admission: No 96 Hour Hold Ending Date: 0 08/04/23 96 Hour Hold Ending Time: 14:35 Attestations NPU 2 Medical Necessity Statement*: Inpatient hospitalization is medically necessary and the clinically appropriate intervention at this time. We will monitor/initiate medications and make changes as indicated. Her likely length of stay 2-3 days. Coding Level of Care Code Acute Code for Chg Fwd Diagnoses Acute psychosis F23 Foreign body in left foot S90.852A Breast feeding status of mother Z39.1 Cannabis use disorder F12.90
[2023-08-18 20:09] VITALS: BP 91/52; PULSE 93; RESP 15; TEMP 35.9; O2SAT 97
[2023-08-19 06:00] VITALS: BP 125/64; PULSE 82; RESP 18; TEMP 36.3; O2SAT 97
[2023-08-19] MEDS: hyDROXYzine 25 mg Capsule 50 MG PO ×3 (07:45→20:29)
[2023-08-19] MEDS: nicotine 2 mg Gum BUCCAL ×2 (07:45→21:55)
[2023-08-19] MEDS: acetaminophen 325 mg Tablet 650 MG PO ×2 (08:41→19:16)
[2023-08-19] MEDS: paliperidone ER 3 mg Tablet PO (08:41)
[2023-08-19] MEDS: ARIPiprazole 10 mg Tablet 20 MG PO (08:41)
[2023-08-19] MEDS: nicotine 4 mg lozenge MUCOUS MEM ×3 (10:04→18:33)
[2023-08-19] MEDS: OLANZapine 5 mg ODT PO (11:08)
--- NOTE | 2023-08-19 13:47 | P.NPUPN_ITS ---
Subjective NPU 2 Subjective: 28-year-old female with a history of biz arre delusions and inability to care for herself or her 1-year-old child readmitted in 24 hours after discharge from the NPU. The patient showed no improvement on the Lou evaluation of living skills. She had reported that she was feeling better every day despite these results. Patient stated that she wished to go home soon to care for her 1-year-old. She did start Invega oral today with a plan to reduce her Abilify due to some concerns of efficacy. Patient denied having any paranoia and stated that she had no concerns regarding being trafficked. She was unable to offer any clear explanation for her behavior that had led her back into the hospital this time. She had continued to minimize the potential effects of her having used marijuana within hours of her discharge last week. She had been able to attend groups today. Mental Status Exam 2 MSE Comments: This is an underweight white female in hospital scrubs with adequate grooming and eye contact. No abnormal movements except for mild psychomotor retardation. She was cooperative with exam in mild distress. Speech was normal in rate and normal in volume. Mood described as good. Her affect appeared odd today. Thought process was linear but superficial. Thought content: She denied active suicidal or homicidal ideation. She did not appear to be responding to internal stimuli. No ideas of reference noted. Attention and concentration was mostly intact and memory was mostly reliable but none were formally tested. She is alert and oriented times person and place today. Insight was improving. Judgment is limited and impulse control is guarded. Vitals/I&O/Wt Last Vital Signs Temp 97.3 F L 08/19/23 06:00 Pulse 82 08/19/23 06:00 Resp 18 08/19/23 06:00 BP 125/64 08/19/23 06:00 Pulse Ox 97 08/19/23 06:00 O2 Del Method Room Air 08/19/23 06:00 Data NPU 08/13/23 11:42 08/13/23 11:42 A&P Assessment and plan (1) Acute psychosis: (2) Foreign body in left foot: (3) Breast feeding status of mother: (4) Cannabis use disorder: Plan This is a 28-year-old white female who presents with psychosis 1 day after discharge with patient admitting to recent THC use. 1. Reduce abilify to 10mg daily. Began Invega 3mg daily. Patient received IM abilify 400mg 2 weeks ago. 2. Continue every 15 minute checks for safety. 3. Encourage individual, group and milieu therapy. 4. Encourage sober living treatment after discharge at the highest level care to which she is willing to commit. Involuntary Hold Information 2 96 Hour Hold: 96 Hour Involuntary Admission: No 96 Hour Hold Ending Date: 0 08/04/23 96 Hour Hold Ending Time: 14:35 Attestations NPU 2 Medical Necessity Statement*: Inpatient hospitalization is medically necessary and the clinically appropriate intervention at this time. We will monitor/initiate medications and make changes as indicated. Her likely length of stay 2-3 days. Coding Level of Care Code Acute Code for Chg Fwd Diagnoses Acute psychosis F23 Foreign body in left foot S90.852A Breast feeding status of mother Z39.1 Cannabis use disorder F12.90
[2023-08-19 14:00] VITALS: BP 110/68; PULSE 97; RESP 16; TEMP 36.6; O2SAT 97
[2023-08-19] MEDS: calcium carbonate 500 mg Chew Tablet PO (18:17)
[2023-08-19] MEDS: trazodone 50 mg Tablet PO (19:17)
[2023-08-19 20:37] VITALS: BP 118/72; PULSE 99; RESP 18; TEMP 36.8; O2SAT 97
[2023-08-20 06:00] VITALS: BP 121/68; PULSE 101; RESP 18; TEMP 36.6; O2SAT 97
[2023-08-20] MEDS: nicotine 2 mg Gum BUCCAL (06:36)
[2023-08-20] MEDS: paliperidone ER 3 mg Tablet PO (08:28)
[2023-08-20] MEDS: ARIPiprazole 10 mg Tablet PO (08:28)
[2023-08-20] MEDS: hyDROXYzine 25 mg Capsule 50 MG PO ×2 (08:57→22:15)
[2023-08-20] MEDS: nicotine 4 mg lozenge MUCOUS MEM ×3 (08:57→19:35)
[2023-08-20] MEDS: acetaminophen 325 mg Tablet 650 MG PO ×2 (10:19→19:56)
[2023-08-20] MEDS: OLANZapine 5 mg ODT PO ×2 (11:39→19:34)
[2023-08-20 14:00] VITALS: BP 114/81; PULSE 148; RESP 16; TEMP 36.9; O2SAT 99
--- NOTE | 2023-08-20 14:48 | P.NPUPN_ITS ---
Subjective NPU 2 Subjective: 28-year-old female with a history of biz arre delusions and inability to care for herself or her 1-year-old child readmitted in 24 hours after discharge from the NPU. The patient had reported some difficulties with falling asleep. She reports that she had expressed worry that she would be unrecognizable to her daughter. She had continued to express desire to wish to return home soon. She reported that she was not having thoughts about anyone trafficking her. She had been able to attend groups without any difficulty. She did not appear confused. She did report that she had felt that this place was causing her more anxiety by keeping her away from her loved ones. Mental Status Exam 2 MSE Comments: This is an underweight white female in hospital scrubs with adequate grooming and eye contact. No abnormal movements except for mild psychomotor retardation. She was cooperative with exam in moderate distress. Speech was normal in rate and normal in volume. Mood described as stressed . Her affect appeared tearful today. Thought process was linear but superficial. Thought content: She denied active suicidal or homicidal ideation. She did not appear to be responding to internal stimuli. No ideas of reference noted. Attention and concentration was mostly intact and memory was mostly reliable but none were formally tested. She is alert and oriented times person and place today. Insight was improving. Judgment is limited and impulse control is guarded. Vitals/I&O/Wt Last Vital Signs Temp 97.9 F 08/20/23 06:00 Pulse 101 H 08/20/23 06:00 Resp 18 08/20/23 06:00 BP 121/68 08/20/23 06:00 Pulse Ox 97 08/20/23 06:00 O2 Del Method Room Air 08/19/23 20:37 Data NPU 08/13/23 11:42 08/13/23 11:42 A&P Assessment and plan (1) Acute psychosis: (2) Foreign body in left foot: (3) Breast feeding status of mother: (4) Cannabis use disorder: Plan This is a 28-year-old white female who presents with psychosis 1 day after discharge with patient admitting to recent THC use. 1. Reduce abilify to 5mg daily. Continue Invega 3mg daily. Patient received IM abilify 400mg 2 weeks ago. 2. Continue every 15 minute checks for safety. 3. Encourage individual, group and milieu therapy. 4. Encourage sober living treatment after discharge at the highest level care to which she is willing to commit. Involuntary Hold Information 2 96 Hour Hold: 96 Hour Involuntary Admission: No 96 Hour Hold Ending Date: 0 08/04/23 96 Hour Hold Ending Time: 14:35 Attestations NPU 2 Medical Necessity Statement*: Inpatient hospitalization is medically necessary and the clinically appropriate intervention at this time. We will monitor/initiate medications and make changes as indicated. Her likely length of stay 2-3 days. Coding Level of Care Code Acute Code for Chg Fwd Diagnoses Acute psychosis F23 Foreign body in left foot S90.852A Breast feeding status of mother Z39.1 Cannabis use disorder F12.90
[2023-08-20] MEDS: trazodone 50 mg Tablet PO (19:56)
[2023-08-20 21:00] VITALS: BP 128/79; PULSE 96; RESP 18; TEMP 36.5; O2SAT 98
[2023-08-21 06:00] VITALS: BP 125/82; PULSE 101; RESP 16; TEMP 36.9; O2SAT 97
[2023-08-21] MEDS: nicotine 4 mg lozenge MUCOUS MEM ×5 (06:12→19:57)
[2023-08-21] MEDS: hyDROXYzine 25 mg Capsule 50 MG PO ×3 (06:14→18:31)
[2023-08-21] MEDS: paliperidone ER 3 mg Tablet PO (08:51)
[2023-08-21] MEDS: ARIPiprazole 10 mg Tablet 5 MG PO (08:51)
[2023-08-21] MEDS: acetaminophen 325 mg Tablet 650 MG PO (09:20)
[2023-08-21] MEDS: OLANZapine 5 mg ODT PO ×2 (11:30→20:41)
[2023-08-21 13:42] VITALS: BP 132/84; PULSE 106; RESP 16; TEMP 36.6; O2SAT 98
--- NOTE | 2023-08-21 16:20 | P.NPUPN_ITS ---
Subjective NPU 2 Subjective: Patient presented today reporting that she is feeling better overall. We discussed her returning very quickly from her discharge last week and she was very much downplaying that anything was out of the ordinary. She reported that she put the beer and the dogs food because of something that her grandfather used to do and he raised dogs. She also said that she put Motrin and the dog food because her dog had been overly exerting himself and running into the other dog and she reported that told her that was something to do. This was liquid Motrin. We discussed that it is my understanding that ibuprofen is very dangerous for dogs and that some dog breed can have kidney failure from one 200 mg pills/Liquigel. She struggled to accept this information, but says she would reach out to her vet. I explained to her that not all NSAIDs are the same and so it is possible as she stated that aspirin was discussed and she may be thought aspirin and ibuprofen are basically the same. We discussed the importance of her taking her medication. We discussed the possibility of discharge in the next 48 hours and agreed we would see if her could come over tonight to discuss our concerns about safety for her and the baby given her current functioning. Mental Status Exam 2 MSE Comments: This is an underweight white female in hospital scrubs with limited grooming and eye contact. No abnormal movements except for mild psychomotor retardation. She was cooperative with exam in mild distress. Speech was normal in rate and slightly decreased in volume. Mood described as I feel better and help to leave soon. Her affect appeared more congruent today. Thought process was linear but superficial. Thought content: She denied active suicidal or homicidal ideation. She did not appear to be responding to internal stimuli. No ideas of reference noted. No delusions reported or noted but continued difficulty with general thought patterns seeming to the abstract. Attention and concentration was mostly intact and memory was unreliable but none were formally tested. She is alert and oriented times person and place today. Insight is limited. Judgment is limited and impulse control is seeming to improve. Vitals/I&O/Wt Last Vital Signs Temp 98 F 08/21/23 13:42 Pulse 106 H 08/21/23 13:42 Resp 16 08/21/23 13:42 BP 132/84 08/21/23 13:42 Pulse Ox 98 08/21/23 13:42 O2 Del Method Room Air 08/21/23 13:42 Data NPU 08/13/23 11:42 08/13/23 11:42 A&P Assessment and plan (1) Acute psychosis: (2) Foreign body in left foot: (3) Breast feeding status of mother: (4) Cannabis use disorder: Plan This is a 28-year-old white female who presents with psychosis 1 day after discharge with patient admitting to recent THC use. 1. Reduce abilify to 5mg daily. Continue Invega 3mg daily. Patient received IM abilify 400mg 2 weeks ago. Discontinue Abilify increase Invega to 6 mg p.o. daily. 2. Continue every 15 minute checks for safety. 3. Encourage individual, group and milieu therapy. 4. Encourage sober living treatment after discharge at the highest level care to which she is willing to commit. 5. We will meet with her nilda and consider the possibility of discharge in the next 48 hours. Involuntary Hold Information 2 96 Hour Hold: 96 Hour Involuntary Admission: No 96 Hour Hold Ending Date: 0 08/04/23 96 Hour Hold Ending Time: 14:35 Attestations NPU 2 Medical Necessity Statement*: Inpatient hospitalization is medically necessary and the clinically appropriate intervention at this time. We will monitor/initiate medications and make changes as indicated. Her likely length of stay 1-2 days. Coding Level of Care Code Acute Code for Chg Fwd Diagnoses Acute psychosis F23 Foreign body in left foot S90.852A Breast feeding status of mother Z39.1 Cannabis use disorder F12.90
[2023-08-21] MEDS: trazodone 50 mg Tablet PO (20:41)
[2023-08-21 20:56] VITALS: BP 119/85; PULSE 96; RESP 18; TEMP 36.4; O2SAT 98
[2023-08-22] MEDS: nicotine 4 mg lozenge MUCOUS MEM ×4 (04:40→16:26)
[2023-08-22 06:00] VITALS: BP 126/67; PULSE 109; RESP 18; TEMP 36.8; O2SAT 99
[2023-08-22] MEDS: hyDROXYzine 25 mg Capsule 50 MG PO ×2 (06:20→14:09)
[2023-08-22] MEDS: acetaminophen 325 mg Tablet 650 MG PO (08:26)
[2023-08-22] MEDS: paliperidone ER 6 mg Tablet PO (08:26)
[2023-08-22] MEDS: ibuprofen 600 mg Tablet PO ×2 (09:08→17:59)
[2023-08-22] MEDS: simethicone 80 mg Chew PO ×2 (09:53→17:59)
[2023-08-22 14:00] VITALS: BP 118/78; PULSE 115; RESP 15; TEMP 36.6; O2SAT 98
[2023-08-22] MEDS: OLANZapine 5 mg ODT PO (14:56)
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
[2023-08-22 19:13] VITALS: BP 118/78; PULSE 115; RESP 15; TEMP 36.6; O2SAT 98
== END 2023-08-22 19:50 | disposition home or self-care (01) | DRG 885 ==
LOC: ER 12:01 → NP 12:22
PROVIDERS: Admitting Provider Psychiatry & Neurology Psychiatry; Emergency Provider Emergency Medicine; Visit Provider Psychiatry & Neurology Psychiatry
DX: F23 Brief psychotic disorder (principal); F41.9 Anxiety disorder, unspecified; G47.00 Insomnia, unspecified; F12.10 Cannabis abuse, uncomplicated; F17.210 Nicotine dependence, cigarettes, uncomplicated; F17.290 Nicotine dependence, other tobacco product, uncomplicated; Z81.8 Family history of other mental and behavioral disorders
CPT/HCPCS: 36415; 80053; 80306; 80307; 81003; 81025; 85025; 97150; 97165; 97167; 99285